=== PATIENT | male | born 1980 | race Caucasian/White ===

== ENCOUNTER 2020-07-26 17:18 | Outpatient (REF) | payer OTHER, SELFPAY | END 2020-07-26 17:19 | disposition home or self-care (01) | LOC: HO.LAB 17:18 | PROVIDERS: Visit Provider Internal Medicine | DX: Z20.828 Contact with and (suspected) exposure to other viral communicable diseases (principal) | CPT/HCPCS: 36415; C9803; U0003 ==

== ENCOUNTER 2020-08-23 06:05 | Outpatient (REF) | payer OTHER, SELFPAY | END 2020-08-23 06:06 | disposition home or self-care (01) | LOC: HO.LAB 06:05 | PROVIDERS: Visit Provider Internal Medicine | DX: Z20.822 Contact with and (suspected) exposure to COVID-19 (principal) | CPT/HCPCS: 36415; C9803; U0003; U0005 ==

== ENCOUNTER 2020-11-05 08:29 | Outpatient (REF) | payer OTHER, SELFPAY ==
[2020-11-05 09:12] LABS: MANUAL DIFF FLAG NO
[2020-11-05 09:18] LABS: Basophils Percent Auto 0.4 % (0-2); Eosinophils Absolute Auto 0.1 X10*3/uL (0.0-0.4); Eosinophils Percent Auto 1.4 % (0-4); Hematocrit 46.8 % (42-52); Hemoglobin 15.2 g/dl (14.0-18.0); Imm Gran Abs Auto 0.02 X10*3/uL (0.00-0.03); Imm Gran Pct Auto 0.3 % (0.0-0.4); Lymphocytes Absolute Auto 2.5 X10*3/uL (1.2-4.9); Lymphocytes Percent Auto 34.4 % (20-40); Mean Corpuscular HGB Conc 32.5 g/dl (31.0-36.0); Mean Corpuscular Hemoglobin 30.9 pg (27.0-33.0); Mean Corpuscular Volume 95.1 fL (80-98); Mean Platelet Volume 11.4 fL (9.4-12.4); Monocytes Absolute Auto 0.8 X10*3/uL (0.1-1.2); Monocytes Percent Auto 11.8 % (2-11); Neutrophils Absolute Auto 3.7 X10*3/uL (2.0-8.3); Neutrophils Percent Auto 51.7 % (45-73); Platelet Count 244 X10*3/uL (160-400); Red Blood Count 4.92 X10*6/uL (4.60-5.80); Red Cell Distribution Width 13.1 % (11.0-16.0); White Blood Count 7.1 X10*3/uL (4.8-10.8)
[2020-11-05 09:35] LABS: Anion Gap 15 (12-20); Blood Urea Nitrogen 20 mg/dL (9-16); Calcium 9.8 mg/dL (8.4-10.2); Carbon Dioxide 26 mmol/L (22-29); Chloride 101 mmol/L (96-108); Estimated Glomerular Filt Rate > 60; Glucose Fasting 97 mg/dL (60-99); Potassium 5.1 mmol/L (3.3-5.1); Sodium 137 mmol/L (135-145)
[2020-11-05 09:58] LABS: Rheumatoid Factor < 15.0 IU/mL (<15.0)
== END 2020-11-05 08:30 | disposition home or self-care (01) ==
LOC: HO.LAB 08:29
PROVIDERS: PCP Internal Medicine; Visit Provider Nurse Practitioner Family
DX: M25.561 Pain in right knee (principal); M25.562 Pain in left knee; G89.29 Other chronic pain
CPT/HCPCS: 36415; 80048; 85025; 86431

== ENCOUNTER 2021-07-14 06:03 | Outpatient (REF) | payer OTHER, SELFPAY ==
[2021-07-14 06:15] LABS: MANUAL DIFF FLAG NO
[2021-07-14 07:18] LABS: Basophils Percent Auto 0.4 % (0-2); Eosinophils Absolute Auto 0.1 X10*3/uL (0.0-0.4); Eosinophils Percent Auto 1.8 % (0-4); Hematocrit 45.9 % (42.0-52.0); Hemoglobin 15.3 g/dl (14.0-18.0); Imm Gran Abs Auto 0.03 X10*3/uL (0.00-0.03); Imm Gran Pct Auto 0.4 % (0.0-0.4); Lymphocytes Absolute Auto 2.9 X10*3/uL (1.2-4.9); Lymphocytes Percent Auto 35.8 % (20-40); Mean Corpuscular HGB Conc 33.3 g/dl (31.0-36.0); Mean Corpuscular Hemoglobin 31.2 pg (27.0-33.0); Mean Corpuscular Volume 93.7 fL (80.0-98.0); Mean Platelet Volume 11.6 fL (9.4-12.4); Monocytes Absolute Auto 0.9 X10*3/uL (0.1-1.2); Monocytes Percent Auto 10.8 % (2-11); Neutrophils Absolute Auto 4.1 x10*3/uL (2.0-8.3); Neutrophils Percent Auto 50.8 % (45-73); Platelet Count 254 X10*3/uL (160-400); Red Cell Distribution Width 12.8 % (11.0-16.0)
[2021-07-14 07:51] LABS: Alanine Aminotransferase 47 U/L (0-40); Albumin Level 4.9 g/dL (3.5-5.0); Alkaline Phosphatase 38 U/L (39-117); Anion Gap 15 (12-20); Aspartate Amino Transferase 44 U/L (5-37); Bilirubin Total 0.6 mg/dL (0.0-1.0); Blood Urea Nitrogen 16 mg/dL (9-16); Calcium 9.7 mg/dL (8.4-10.2); Carbon Dioxide 26 mmol/L (22-29); Chloride 100 mmol/L (96-108); Cholesterol 246 mg/dL; Estimated Glomerular Filt Rate > 60; Glucose Fasting 88 mg/dL (60-99); HDL Cholesterol 52 mg/dL; LDL Cholesterol Calculated 157 mg/dl; Potassium 4.3 mmol/L (3.3-5.1); Sodium 137 mmol/L (135-145); Total Protein 7.6 g/dL (6.5-8.0); Triglycerides 187 mg/dL
[2021-07-14 08:14] LABS: TSH reflex Free T4 1.13 uIU/mL (0.32-4.0)
== END 2021-07-14 06:04 | disposition home or self-care (01) ==
LOC: HO.LAB 06:03
PROVIDERS: PCP Internal Medicine; Visit Provider Internal Medicine
DX: M25.512 Pain in left shoulder (principal); E78.00 Pure hypercholesterolemia, unspecified; E55.9 Vitamin D deficiency, unspecified
CPT/HCPCS: 36415; 80053; 80061; 82306; 84443; 85025

== ENCOUNTER 2021-07-15 08:30 | Outpatient (REF) | payer OTHER, SELFPAY ==
--- NOTE | ~2021-07-15 | XR_ITS ---
EXAMINATION: XR SHOULDER, LEFT CLINICAL INFORMATION: Pain in the left shoulder COMPARISON: None TECHNIQUE: Four views of the left shoulder. FINDINGS: No fracture or dislocation. The glenohumeral joint is well aligned. There is mild narrowing of the joint space. The acromioclavicular joint is intact. Minimal calcification in the soft tissues adjacent to the greater tuberosity. XR/XR shoulder LT min 2V IMPRESSION: There may be minimal calcific tendinosis of the rotator cuff. Mild glenohumeral joint space narrowing.
== END 2021-07-15 08:31 | disposition home or self-care (01) ==
LOC: HO.XRAY 08:30
PROVIDERS: PCP Internal Medicine; Visit Provider Internal Medicine
DX: M25.512 Pain in left shoulder (principal)
CPT/HCPCS: 73030

== ENCOUNTER 2021-08-09 14:00 | Outpatient (RCR) | payer OTHER, SELFPAY ==
--- NOTE | 2021-08-09 15:04 | MHC.PT.EP ---
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 FUNCTIONALLY, Pt HAS BEEN FAVORING Lt UE W ADLs/ WORK TASKS, DIFFIC SLEEPING, AND LIMITED REACHING/ LIFTING/CARRYING. HE IS A GOOD PT CANDIDATE TO ADDRESS THE ABOVE FINDINGS AND DEV HEP/ SELF-SX MGMT TECHN. Frequency and Duration: The patient will be seen 2 x WK x 4 WKS Short Term Goals: Pt'S LEFT SH PAIN DECR TO 2-3/10 W REG ADLs/ WORK TASKS IN 2 WKS Pt DEMON FULL AROM Lt SH IN 2 WKS (-) LEFT NEER'S SIGN IN 2 WKS [facility] Goals: Pt INDEP HEP PROGR AND SELF-SX MGMT STRATEGIES FOR LEFT SH INJURY IN 4 WKS Pt RESUME REG ADLs TO DAVID EVIDENT IN IMPROVED SPADI BY 5-8 POINTS ( AT EVAL 26/130 ) IN 4 WKS Pt SIMUL 3:3 ADLs / WORK TASKS W WFL MECHANICS (DECR SH STRESS) IN 4 WKS Treatment Plan: Modalities to reduce pain, spasms and effusion. Manual therapy to restore motion and function. Therapeutic exercise to improve strength and flexibility. Neuromuscular re-education for posture and balance. Therapeutic activities to return to functional activities of daily living. Electronically signed by: Aruna Andrade,PT Please sign and return to therapist. Thank you for your referral.
--- NOTE | 2021-08-17 13:11 | MHC.PT.DC ---
[facility] [place] Office [place] Office [place] Office [address] Ailyn Lundy 140 [facility] [phone] F: [phone] F: [phone] F: [phone] F: [phone] Physical Therapy Discharge Report Diagnosis: PAIN IN LEFT SHOULDER Date of Surgery: Date of Evaluation: 08/09/21 Date of Discharge: 08/17/21 Treatments to Date: 1 Cancellations to Date: 1 No Shows to Date: Discharge Status: Achieved Goals Improved Function Independent with HEP Patient Elected to Stop Discharge Summary: Pt PHONED PT DEPT AND NOTED HE HAS BEEN PERFORMING THERAPEUTIC EXERCISES FROM INITIAL PT EVAL AND HE IS FEELING AND DOING MUCH BETTER AND IS DISCHARGING HIMSELF FROM PT AT THIS TIME. Electronically signed by: Aruna Andrade, PT Please sign and return to therapist. Thank you for your referral.
== END 2021-08-17 13:16 | disposition home or self-care (01) ==
LOC: HO.PT 14:00
PROVIDERS: PCP Internal Medicine; Visit Provider Internal Medicine
DX: M25.512 Pain in left shoulder (principal)
CPT/HCPCS: 97110; 97161

== ENCOUNTER 2022-03-16 06:06 | Outpatient (REF) | payer OTHER, SELFPAY ==
[2022-03-16 06:12] LABS: MANUAL DIFF FLAG NO
[2022-03-16 07:39] LABS: Basophils Percent Auto 0.3 % (0-2); Eosinophils Absolute Auto 0.1 X10*3/uL (0.0-0.4); Hematocrit 43.7 % (42.0-52.0); Hemoglobin 14.7 g/dl (14.0-18.0); Imm Gran Abs Auto 0.02 X10*3/uL (0.00-0.03); Imm Gran Pct Auto 0.3 % (0.0-0.4); Lymphocytes Absolute Auto 2.4 X10*3/uL (1.2-4.9); Lymphocytes Percent Auto 36.4 % (20-40); Mean Corpuscular HGB Conc 33.6 g/dl (31.0-36.0); Mean Corpuscular Hemoglobin 31.2 pg (27.0-33.0); Mean Corpuscular Volume 92.8 fL (80.0-98.0); Mean Platelet Volume 11.5 fL (9.4-12.4); Monocytes Absolute Auto 0.6 X10*3/uL (0.1-1.2); Monocytes Percent Auto 9.6 % (2-11); Neutrophils Absolute Auto 3.4 x10*3/uL (2.0-8.3); Neutrophils Percent Auto 51.4 % (45-73); Platelet Count 248 X10*3/uL (160-400); Red Blood Count 4.71 X10*6/uL (4.60-5.80); Red Cell Distribution Width 12.4 % (11.0-16.0); White Blood Count 6.5 X10*3/uL (4.8-10.8)
[2022-03-16 08:03] LABS: Alanine Aminotransferase 31 U/L (0-40); Albumin Level 4.6 g/dL (3.5-5.0); Alkaline Phosphatase 35 U/L (39-117); Anion Gap 16 (12-20); Aspartate Amino Transferase 29 U/L (5-37); Bilirubin Total 0.5 mg/dL (0.0-1.0); Blood Urea Nitrogen 14 mg/dL (9-16); Calcium 9.1 mg/dL (8.4-10.2); Carbon Dioxide 25 mmol/L (22-29); Chloride 103 mmol/L (96-108); Cholesterol 225 mg/dL; Estimated Glomerular Filt Rate > 60; Glucose Fasting 96 mg/dL (60-99); HDL Cholesterol 45 mg/dL; LDL Cholesterol Calculated 134 mg/dl; Potassium 4.7 mmol/L (3.3-5.1); Sodium 139 mmol/L (135-145); Total Protein 7.3 g/dL (6.5-8.0); Triglycerides 233 mg/dL
[2022-03-16 08:06] LABS: TSH reflex Free T4 1.55 uIU/mL (0.32-4.0); Vitamin D 25-OH Total 28.5 ng/mL (>30)
== END 2022-03-16 06:07 | disposition home or self-care (01) ==
LOC: HO.LAB 06:06
PROVIDERS: PCP Internal Medicine; Visit Provider Internal Medicine
DX: E78.00 Pure hypercholesterolemia, unspecified (principal); E55.9 Vitamin D deficiency, unspecified; I10 Essential (primary) hypertension
CPT/HCPCS: 36415; 80053; 80061; 82306; 84443; 85025

== ENCOUNTER 2023-02-15 13:29 | Outpatient (AMB) | payer OTHER, SELFPAY ==
[2023-02-15 13:30] VITALS: BP 122/70; PULSE 92; O2SAT 96; BMI 25.0
--- NOTE | 2023-02-15 13:30 | MHC.PC.OV ---
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 Allergies No Known Allergies Allergy (Mild, Verified 02/15/23 13:38) NONE Medication List - Last Reconciled 02/15/23 by YOANA Iglesias atorvastatin 10 mg PO DAILY 90 days cholecalciferol (vitamin D3) 50 mcg PO DAILY 90 days cyclobenzaprine 5 mg PO TID PRN 30 days Tobacco use date assessed: 02/15/23 Dental Screening Dental Screen Date: 02/15/23 Did you have a dental visit in the last 12 months?: Yes Did you have a dental problem in the last 6 months where you did not have access to dental care?: No Was dental information given to patient?: Patient has dentist HPI Muscle spasms On Legs HPI Details Patient is a 42-year-old male who presents today for the same day visit due to intermittent bilateral knee pain and spasming in his anterior thigh/calfs since 10/2022. Patient of Dr. Carrizales. Medical history significant for bilateral knee pain, hypercholesterolemia, insomnia among others. Patient has orders for bilateral knee x-rays, he was encouraged to complete his x-rays. He reports taking Excedrin with no much improvement in pain. He also reports taking cyclobenzaprine with improvement in spasms. Patient reports that bilateral knee pain is worse in the morning when he wakes up. Reports that knee cracking at times. Reports riding bicycle to work. Reports feels better when wears compression stockings. Denies injury. No numbness or tingling. [facility] Medical History Allergic rhinitis Knee pain, bilateral Pure hypercholesterolemia Vitamin D deficiency Surgical History History of strabismus surgery Social History Housing: Apartment Alcohol intake: current Alcohol intake frequency: a few times a week Patient Tobacco Use Status: Current everyday Tobacco user Tobacco use type: Cigar Cigarettes Per Day: 1 e-Cigarette/Vaping Use: Never Used Second Hand Smoke Exposure: Yes service: No Current occupational status: employed Cognitive needs: No Hearing needs: No Vision needs: No Questionnaire PHQ-9 Over the last 2 weeks, how often have you been bothered by any of the following problems? 1. Little interest or pleasure in doing things: not at all 2. Feeling down, depressed, or hopeless: not at all 3. Trouble falling or staying asleep, or sleeping too much: not at all 4. Feeling tired or having little energy: not at all 5. Poor appetite or overeating: not at all 6. Feeling bad about yourself - or that you are a failure or have let yourself or your family down: not at all 7. Trouble concentrating on things, such as reading the newspaper or watching television: not at all 8. Moving or speaking so slowly that other people could have noticed. Or the opposite - being so fidgety or restless that you have been moving around a lot more than usual: not at all 9. Thoughts that you would be better off or of hurting yourself in some way: not at all Total score: 0 Depression Screening Interpretation: Negative 18702 - PHQ-9 Billing: Yes Source: Developed by Drs. Bill Pardo, Rachel Prasad, Edvin Baugh and colleagues, with an educational portia from [employer]. Thrive Questionnaire Date Thrive assessed: 11/10/22 AUDIT C Alcohol Use Questionnaire (AUDIT-C) 1. How often do you have a drink containing alcohol?: 2-4 times a month 2. How many drinks containing alcohol do you have on a typical day when you are drinking?: 5 or 6 3. How often do you have six or more drinks on one occasion?: Never Total Score: 4 Score Reviewed/Action Taken: Yes ALIA-7 AMB Questionnaire ALIA-7 Date ALIA - 7 assessed: 11/10/22 Source: Developed by Drs. Bill Pardo, Edvin Aparicio and colleagues, with an educational portia from [employer]. Review of Systems Const Denies body aches, Denies chills, Denies fever(s) and Denies headache(s) Eyes Denies change in vision ENT Denies dizziness, Denies otalgia, Denies headache(s), Denies nasal discharge, Denies sinus pain and Denies sore throat Card Denies chest pain, Denies edema, Denies lightheadedness and Denies dyspnea Resp Denies cough, Denies dyspnea and Denies wheezing GI Denies abdominal pain Denies dysuria Musc Denies myalgias, Reports arthralgias, Denies joint swelling, Denies numbness and Denies tingling Skin/Breast Denies rash Neuro Denies dizziness, Denies headache(s), Denies numbness and Denies tingling Aller/Immun Denies wheezing Physical exam (Primary Care) Vital Signs: Last Vital Signs Pulse 92 02/15/23 13:30 BP 122/70 02/15/23 13:30 Pulse Ox 96 02/15/23 13:30 Oxygen Delivery Method Room Air 02/15/23 13:30 BMI result Body Mass Index 25.0 Tobacco/Smoking Status: Tobacco use Status Tobacco use date assessed 02/15/23 02/15/23 13:31 Patient Tobacco Use Status Current everyday Tobacco 02/15/23 13:31 Tobacco use type Cigar 02/15/23 13:31 e-Cigarette/Vaping Use Never Used 02/15/23 13:31 PHQ-9: PHQ-9 Score PHQ-9: Total score 0 02/15/23 13:31 Depression Screening Interpretation: Negative Thrive Assessment: Date of Thrive Assessment Date Thrive assessed 11/10/22 02/15/23 13:31 Const General: cooperative and no acute distress Orientation/consciousness: patient oriented x3 [facility] Head: Yes normocephalic and Yes atraumatic Mouth: oropharynx normal and moist mucous membranes Throat: Yes posterior oropharynx normal Eyes General: appearance normal, both eyes and all related structures Neck Neck: Yes normal visual inspection and Yes full ROM Resp Effort & Inspection: normal respiratory effort and able to speak in complete sentences Auscultation: clear to auscultation bilaterally, no crackles, no rales, no rhonchi and no wheezes Cardio Rate: regular rate Rhythm: regular rhythm Heart sounds: S1 normal heart sound present and S2 normal heart sound present GI Auscultation: normal bowel sounds Skin General skin exam: no rashes or lesions noted Neuro General: patient oriented x3 Gait exam (Neuro): Normal gait present Extrem Other: Bilateral knee normal to inspection, nontender, full range of motion General: Yes full ROM and No edema Assessment and Plan Assessment & Plan (1) Knee pain, bilateral: Code(s): M25.561 - Pain in right knee; M25.562 - Pain in left knee Qualifiers: Chronicity: chronic Qualified Code(s): M25.561 - Pain in right knee; M25.562 - Pain in left knee; G89.29 - Other chronic pain Plan: Patient was encouraged to complete bilateral knee x-rays that were ordered by his PCP. Will refer to physical therapy. Most likely arthritis. Will provide patient with ibuprofen 600 mg every 8 hours p.r.n., he will also try Tylenol 650 mg every 6 hours p.r.n.. Patient agreed with the plan. Keep appointment with PCP as scheduled or follow-up sooner as needed. Orders: Orders PT Evaluation and Treatment Today M25.561 - Pain in right knee, M25.562 - Pain in left knee Medications: New ibuprofen 600 mg PO Q8H PRN 20 tabs 0RF pain M25.561 - Pain in right knee, M25.562 - Pain in left knee Coding Level of Care Code Est Pt Level 3 (46640) Diagnoses Knee pain, bilateral M25.561; M25.562; G89.29 Chronicity: chronic
== END 2023-02-15 14:46 | disposition home or self-care (01) ==
PROVIDERS: PCP Internal Medicine; Visit Provider Nurse Practitioner Family
DX: M25.561 Pain in right knee (principal); M25.562 Pain in left knee; G89.29 Other chronic pain
CPT/HCPCS: 99213

== ENCOUNTER 2023-02-23 06:01 | Outpatient (REF) | payer OTHER, SELFPAY ==
--- NOTE | ~2023-02-23 | XR_ITS ---
EXAMINATION: XR KNEE, RIGHT CLINICAL INFORMATION: Pain. COMPARISON: Radiographs dated 05/27/2019. TECHNIQUE: AP, lateral and sunrise views of the right knee. FINDINGS: Bones and soft tissues are normal. No fracture or joint effusion. Alignment is anatomic. Joint spaces are well maintained. No abnormal soft tissue calcification. XR/XR knee RT 3V IMPRESSION: Normal knee. EXAMINATION: XR KNEE, LEFT CLINICAL INFORMATION: Pain. COMPARISON: Radiographs dated 05/27/2019. TECHNIQUE: AP, lateral and sunrise views of the left knee. FINDINGS: Bones and soft tissues are normal. No fracture or joint effusion. Alignment is anatomic. Joint spaces are well maintained. No abnormal soft tissue calcification. IMPRESSION: Normal knee.
--- NOTE | ~2023-02-23 | XR_ITS ---
EXAMINATION: XR KNEE, RIGHT CLINICAL INFORMATION: Pain. COMPARISON: Radiographs dated 05/27/2019. TECHNIQUE: AP, lateral and sunrise views of the right knee. FINDINGS: Bones and soft tissues are normal. No fracture or joint effusion. Alignment is anatomic. Joint spaces are well maintained. No abnormal soft tissue calcification. XR/XR knee LT 3V IMPRESSION: Normal knee. EXAMINATION: XR KNEE, LEFT CLINICAL INFORMATION: Pain. COMPARISON: Radiographs dated 05/27/2019. TECHNIQUE: AP, lateral and sunrise views of the left knee. FINDINGS: Bones and soft tissues are normal. No fracture or joint effusion. Alignment is anatomic. Joint spaces are well maintained. No abnormal soft tissue calcification. IMPRESSION: Normal knee.
[2023-02-23 06:14] LABS: MANUAL DIFF FLAG NO
[2023-02-23 07:40] LABS: Basophils Percent Auto 0.4 % (0-2); Eosinophils Absolute Auto 0.1 X10*3/uL (0.0-0.4); Eosinophils Percent Auto 1.6 % (0-4); Hematocrit 44.1 % (42.0-52.0); Hemoglobin 14.4 g/dl (14.0-18.0); Imm Gran Abs Auto 0.03 X10*3/uL (0.00-0.03); Imm Gran Pct Auto 0.4 % (0.0-0.4); Lymphocytes Absolute Auto 2.2 X10*3/uL (1.2-4.9); Lymphocytes Percent Auto 30.3 % (20-40); Mean Corpuscular HGB Conc 32.7 g/dl (31.0-36.0); Mean Corpuscular Hemoglobin 30.8 pg (27.0-33.0); Mean Corpuscular Volume 94.4 fL (80.0-98.0); Mean Platelet Volume 11.7 fL (9.4-12.4); Monocytes Absolute Auto 0.6 X10*3/uL (0.1-1.2); Monocytes Percent Auto 7.8 % (2-11); Neutrophils Absolute Auto 4.4 x10*3/uL (2.0-8.3); Neutrophils Percent Auto 59.5 % (45-73); Platelet Count 238 X10*3/uL (160-400); Red Blood Count 4.67 X10*6/uL (4.60-5.80); White Blood Count 7.3 X10*3/uL (4.8-10.8)
[2023-02-23 08:13] LABS: Alanine Aminotransferase 29 U/L (0-40); Albumin Level 4.6 g/dL (3.5-5.0); Alkaline Phosphatase 35 U/L (39-117); Anion Gap 14 (12-20); Aspartate Amino Transferase 28 U/L (5-37); Bilirubin Total 0.3 mg/dL (0.0-1.0); Blood Urea Nitrogen 25 mg/dL (9-16); Calcium 9.4 mg/dL (8.4-10.2); Carbon Dioxide 23 mmol/L (22-29); Chloride 104 mmol/L (96-108); Cholesterol 241 mg/dL; Estimated Glomerular Filt Rate > 60; Glucose Fasting 95 mg/dL (60-99); HDL Cholesterol 43 mg/dL; LDL Cholesterol Calculated 121 mg/dl; Potassium 4.2 mmol/L (3.3-5.1); Sodium 137 mmol/L (135-145); Total Protein 7.7 g/dL (6.5-8.0); Triglycerides 387 mg/dL
[2023-02-23 08:24] LABS: TSH reflex Free T4 1.24 uIU/mL (0.32-4.0); Vitamin D 25-OH Total 33.1 ng/mL (>30)
[2023-02-23 08:47] LABS: Appearance Urine Clear; Color Urine Yellow; Glucose Urine UA Negative (Negative); Leukocyte Esterase Urine Negative (Negative); Nitrite Urine Negative (Negative); PH 5.5 (5.0-9.0); Urine Blood Negative (Negative); Urine Ketones Negative (Negative); Urine Protein Negative (Neg-Trace)
== END 2023-02-23 06:02 | disposition home or self-care (01) ==
LOC: HO.XRAY 06:01
PROVIDERS: PCP Internal Medicine; Visit Provider Internal Medicine
DX: M25.562 Pain in left knee (principal); M25.561 Pain in right knee; R30.0 Dysuria; E78.00 Pure hypercholesterolemia, unspecified; E55.9 Vitamin D deficiency, unspecified; Z00.00 Encounter for general adult medical examination without abnormal findings
CPT/HCPCS: 36415; 73562; 80053; 80061; 81003; 82306; 84443; 85025

== ENCOUNTER 2023-03-13 14:24 | Outpatient (AMB) | payer OTHER, SELFPAY ==
[2023-03-13 14:30] VITALS: BP 118/72; PULSE 93; O2SAT 97; BMI 25.1
--- NOTE | 2023-03-13 14:30 | MHC.PC.OV ---
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 Accompanied by: Self / Same As Patient Allergies No Known Allergies Allergy (Mild, Verified 03/20/23 03:29) NONE Medication List - Last Reconciled 03/13/23 by Jason Carrizales MD atorvastatin 10 mg PO DAILY 90 days cholecalciferol (vitamin D3) 50 mcg PO DAILY 90 days cyclobenzaprine 5 mg PO TID PRN 30 days ibuprofen 600 mg PO Q8H PRN Tobacco use date assessed: 03/13/23 Dental Screening Dental Screen Date: 03/13/23 Did you have a dental visit in the last 12 months?: Yes Did you have a dental problem in the last 6 months where you did not have access to dental care?: No Was dental information given to patient?: Patient has dentist HPI hyperlipidemia HPI Details Patient comes in today for his follow up visit States that he feels okay but continues to experience recurrent bilateral knee pains Had knee x-rays done a couple of weeks ago and would like to know how his x-rays came out He denies any headaches or dizziness Denies any chest pains, no SOB No nausea/vomiting, no abdominal pain No change in bowel habits noted Had his follow up labs done a couple of weeks ago - to discuss his results [facility] Medical History Allergic rhinitis Knee pain, bilateral Pure hypercholesterolemia Vitamin D deficiency Surgical History History of strabismus surgery Social History Housing: Apartment Alcohol intake: current Alcohol intake frequency: a few times a week Patient Tobacco Use Status: Current everyday Tobacco user Tobacco use type: Cigar Cigarettes Per Day: 1 e-Cigarette/Vaping Use: Never Used Second Hand Smoke Exposure: Yes service: No Current occupational status: employed 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 1. Little interest or pleasure in doing things: not at all 2. Feeling down, depressed, or hopeless: not at all 3. Trouble falling or staying asleep, or sleeping too much: not at all 4. Feeling tired or having little energy: not at all 5. Poor appetite or overeating: not at all 6. Feeling bad about yourself - or that you are a failure or have let yourself or your family down: not at all 7. Trouble concentrating on things, such as reading the newspaper or watching television: not at all 8. Moving or speaking so slowly that other people could have noticed. Or the opposite - being so fidgety or restless that you have been moving around a lot more than usual: not at all 9. Thoughts that you would be better off or of hurting yourself in some way: not at all Total score: 0 Depression Screening Interpretation: Negative 41981 - PHQ-9 Billing: Yes Source: Developed by Drs. Bill Pardo, Rachel Prasad, Edvin Baugh and colleagues, with an educational portia from [employer] for [employer]. Thrive Questionnaire Date Thrive assessed: 03/13/23 I am a: Patient What is your living situation today?: I have a steady place to live Within the past 12 months, did the food you bought not last and you didn't have the money to get more?: Never true Within the past 12 months, did you worry whether your food would run out before you got money to buy more?: Never true Do you have trouble paying for medicines?: No Do you have trouble getting transportation to medical appointments?: No Do you have trouble paying your heating and electricity bill?: No Do you have trouble taking care of your child, family member or friend?: No Do you have trouble with day-to-day activities such as bathing, preparing meals, shopping, managing finances, etc.?: No Are you currently unemployed and looking for a job?: No Are you interested in more education?: No Please select the resources that you would like help with: None Currently or been in a relationship where the following occur: no concerns reported AUDIT C Alcohol Use Questionnaire (AUDIT-C) 1. How often do you have a drink containing alcohol?: 2-4 times a month 2. How many drinks containing alcohol do you have on a typical day when you are drinking?: 5 or 6 3. How often do you have six or more drinks on one occasion?: Never Total Score: 4 Score Reviewed/Action Taken: Yes ALIA-7 AMB Questionnaire ALIA-7 Date ALIA - 7 assessed: 03/13/23 Feeling nervous, anxious, or on edge: 0 = Not at all Not being able to stop or control worryin = Not at all Worrying too much about different things: 0 = Not at all Trouble relaxin = Not at all Being so restless that it is hard to sit still: 0 = Not at all Becoming easily annoyed or irritable: 0 = Not at all Feeling afraid as if something awful might happen: 0 = Not at all Total ALIA-7 score (0-4 normal; 5-9 mild; 10-14 moderate; 15-21 severe): 0 Source: Developed by Drs. Bill Pardo, Rachel Prasad, Edvin Baugh and colleagues, with an educational portia from [employer] for [employer]. Review of Systems Const Denies chills, Denies fatigue, Denies fever(s) and Denies headache(s) ENT Denies dysphagia, Denies dizziness, Denies otalgia, Denies headache(s), Denies odynophagia and Denies sore throat Card Denies chest pain, Denies palpitations and Denies dyspnea Resp Denies cough and Denies dyspnea GI Denies abdominal pain, Denies constipation, Denies dysphagia, Denies heartburn, Denies diarrhea, Denies nausea, Denies odynophagia and Denies vomiting Denies dysuria, Denies nocturia and Denies urinary frequency Musc Reports arthralgias (over both knees) Neuro Denies dizziness and Denies headache(s) Endo Denies fatigue and Denies palpitations Physical exam (Primary Care) Vital Signs: Last Vital Signs Pulse 93 03/13/23 14:30 BP 118/72 03/13/23 14:30 Pulse Ox 97 03/13/23 14:30 Oxygen Delivery Method Room Air 03/13/23 14:30 BMI result Body Mass Index 25.1 Tobacco/Smoking Status: Tobacco use Status Tobacco use date assessed 03/13/23 03/13/23 14:38 Patient Tobacco Use Status Current everyday Tobacco 03/13/23 14:38 Tobacco use type Cigar 03/13/23 14:38 e-Cigarette/Vaping Use Never Used 03/13/23 14:38 PHQ-9: PHQ-9 Score PHQ-9: Total score 0 03/13/23 14:56 Depression Screening Interpretation: Negative Thrive Assessment: Date of Thrive Assessment Date Thrive assessed 03/13/23 03/13/23 14:38 Currently or been in a relationship where the following occur: no concerns reported Const General: no acute distress and alert HENMT Ears: TM's normal bilaterally and EAC's normal Throat: Yes posterior oropharynx normal and Yes tonsils normal (no TP congestion) Neck Neck: Yes no lymphadenopathy and Yes supple Resp Auscultation: clear to auscultation bilaterally, no rales and no wheezes Cardio Rate: regular rate Rhythm: regular rhythm Heart sounds: no murmurs GI Palpation (GI): Soft to palpation and nontender Auscultation: normal bowel sounds Skin General skin exam: no rashes or lesions noted Extrem General: Yes no clubbing, cyanosis or edema Right lower extremity: knee Details: tenderness; no swelling Left lower extremity: knee Details: tenderness; no swelling Results Reviewed Results Reviewed: Laboratory Tests 03/16/22 02/23/23 02/23/23 06:11 06:12 06:12 WBC 7.3 Hgb 14.4 Hct 44.1 Plt Count 238 Sodium 137 Potassium 4.2 Creatinine 0.90 Estimated GFR > 60 Fasting Glucose 95 Calcium 9.4 AST 28 ALT 29 Triglycerides 233 387 Cholesterol 225 241 LDL Cholesterol, Calc 134 121 HDL Cholesterol 45 43 25-OH Vitamin D Total 33.1 TSH 1.24 Ur Specific [place] Urine Protein Urine Glucose (UA) Urine Blood 02/23/23 07:21 WBC Hgb Hct Plt Count Sodium Potassium Creatinine Estimated GFR Fasting Glucose Calcium AST ALT Triglycerides Cholesterol LDL Cholesterol, Calc HDL Cholesterol 25-OH Vitamin D Total TSH Ur Specific [place] 1.010 Urine Protein Negative Urine Glucose (UA) Negative Urine Blood Negative Assessment and Plan Assessment & Plan (1) Pure hypercholesterolemia: Code(s): E78.00 - Pure hypercholesterolemia, unspecified Plan: Results of his labs done a couple of weeks ago reviewed and discussed with patient - advised that his LDL cholesterol has improved from previous but his serum triglyceride level has increased significantly Reinforced low cholesterol diet Continue Atorvastatin 10 mg QD Will recheck his labs and fasting lipids again in 4 months for follow up (2) Elevated LFTs: Code(s): R79.89 - Other specified abnormal findings of blood chemistry Plan: His LFTs have improved previously and have remained normal on his recent labs; were most likely due to his alcohol intake and partly to his high cholesterol Reinforced to continue trying to cut back on his alcohol intake and to avoid taking any Tylenol or Acetaminophen-containing medications as much as possible Will continue to monitor his LFTs regularly (3) Vitamin D deficiency: Code(s): E55.9 - Vitamin D deficiency, unspecified Plan: Corrected - continue Vitamin D3 2000 units QD (4) Left shoulder pain: Code(s): M25.512 - Pain in left shoulder Qualifiers: Chronicity: unspecified Qualified Code(s): M25.512 - Pain in left shoulder Plan: His shoulder pains have improved a lot and only bother him occasionally nowadays X-rays of the left shoulder done last year revealed findings suggestive of minimal calcific tendinosis of the rotator cuff and mild glenohumeral joint space narrowing He has been advised that this is mostly an overuse type of injury, most likely brought about by his workout routine (5) Knee pain, bilateral: Code(s): M25.561 - Pain in right knee; M25.562 - Pain in left knee Qualifiers: Chronicity: chronic Qualified Code(s): M25.561 - Pain in right knee; M25.562 - Pain in left knee; G89.29 - Other chronic pain Plan: X-rays of both knees done a couple of weeks ago came out normal Will refer him to Orthopedics for further evaluation and management (6) Insomnia: Code(s): G47.00 - Insomnia, unspecified Qualifiers: Insomnia type: unspecified Qualified Code(s): G47.00 - Insomnia, unspecified Plan: His main issue here is waking up consistently after 4 to 5 hours of sleep for no particular reason - may be due to some unrecognized anxiety or other potential issues Has been advised to try adjusting his sleeping habits OR try taking some OTC Melatonin to see if it will help, although he technically has no problem falling asleep when he gets to bed at night (7) Cigar smoker: Code(s): F17.290 - Nicotine dependence, other tobacco product, uncomplicated Plan: Counseled again on smoking cessation Plan Follow up in 4 months Orders: Orders Comprehensive [place]. Panel Fast 4 Months E78.00 - Pure hypercholesterolemia, unspecified Lipid Panel 4 Months E78.00 - Pure hypercholesterolemia, unspecified Referrals Orthopedics Referral M25.561 - Pain in right knee, M25.562 - Pain in left knee Coding Level of Care Code Est Pt Level 4 (59762) Diagnoses Pure hypercholesterolemia E78.00 Elevated LFTs R79.89 Vitamin D deficiency E55.9 Left shoulder pain M25.512 Chronicity: unspecified Knee pain, bilateral M25.561; M25.562; G89.29 Chronicity: chronic Insomnia G47.00 Insomnia type: unspecified Cigar smoker F17.290
== END 2023-03-13 15:05 | disposition home or self-care (01) ==
PROVIDERS: PCP Internal Medicine; Visit Provider Internal Medicine
DX: E78.00 Pure hypercholesterolemia, unspecified (principal); E55.9 Vitamin D deficiency, unspecified; M25.512 Pain in left shoulder; F17.290 Nicotine dependence, other tobacco product, uncomplicated; M25.561 Pain in right knee; M25.562 Pain in left knee; G47.00 Insomnia, unspecified
CPT/HCPCS: 99214

== ENCOUNTER 2023-03-16 10:30 | Outpatient (AMB) | payer OTHER, SELFPAY ==
[2023-03-16 10:40] VITALS: BMI 25.0
--- NOTE | 2023-03-16 10:40 | A.OFFVIS_ITS ---
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 States both are painful. Seen with his PCP Dr. Carrizales on 03/13/23 who referred patient to P.T and orthopedics due to ongoing knee pain since October. Patient rides a bike to and from work, which increase pain. He now has an electric bike which has been helping. The patient states that he has begun formal physical therapy. He has only been there for his evaluation visit. He states that he has started stretching on his own which has given him fairly good relief. He denies any locking or giving way. He does not like taking medicines for his discomfort. Allergies No Known Allergies Allergy (Mild, Verified 03/16/23 10:41) NONE Medication List - Last Reconciled 03/16/23 by Mono Salamanca MD atorvastatin 10 mg PO DAILY 90 days cholecalciferol (vitamin D3) 50 mcg PO DAILY 90 days cyclobenzaprine 5 mg PO TID PRN 30 days ibuprofen 600 mg PO Q8H PRN PFSH Medical History Allergic rhinitis Knee pain, bilateral Pure hypercholesterolemia Vitamin D deficiency Surgical History History of strabismus surgery Social History (Updated 03/16/23 @ 10:54 by Gaye Busby [facility]) Housing: Apartment Alcohol intake: current Alcohol intake frequency: a few times a week Patient Tobacco Use Status: Current everyday Tobacco user Tobacco use type: Cigar Cigarettes Per Day: 1 e-Cigarette/Vaping Use: Never Used Second Hand Smoke Exposure: Yes service: No Current occupational status: employed 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 Cognitive needs: No Hearing needs: No Vision needs: No Physical Exam Vital Signs: BMI result Body Mass Index 25.0 Const Other: Well-nourished well-developed very friendly male awake alert and oriented x3 in no acute distress Extrem Other: Bilateral lower extremity examination shows good capillary refill, no skin lesions noted, normal sensation light touch Bilateral knee examination shows minimal effusions, minimal crepitus with range of motion, no focal tenderness, negative Alethea's test, no instability Results Reviewed Results Reviewed: X-rays of the patient's bilateral knee show mild diffuse joint space narrowing, no acute bony abnormalities Assessment & Plan Assessment & Plan (1) Bilateral knee pain: Code(s): M25.561 - Pain in right knee; M25.562 - Pain in left knee Plan Mr. Marin presents with bilateral knee pains most likely due to quadriceps tendinosis, hamstrings tightness and iliotibial band syndrome. I had a lengthy discussion with the patient regarding the treatment options. We will hold off on a cortisone injection at this time. The patient will continue with his home stretching program. He will also continue formal physical therapy. He will follow up with me on an as-needed basis should his symptoms not plateau at an unacceptable level over the next few months. Feel free to call me at any time should questions regarding his orthopedic management arise. Thank you very much for asking me to see this very friendly gentleman. I spent 22 minutes in reviewing the patient's records and imaging studies, seeing the patient and documenting in the medical record. Coding Level of Care Code New Pt Level 2 (16631) Diagnoses Bilateral knee pain M25.561; M25.562
== END 2023-03-16 11:24 | disposition home or self-care (01) ==
PROVIDERS: PCP Internal Medicine; Visit Provider Orthopaedic Surgery
DX: M25.561 Pain in right knee (principal); M25.562 Pain in left knee
CPT/HCPCS: 99202

== ENCOUNTER → 2023-03-16 10:30 | Outpatient (BNVA) | payer OTHER, SELFPAY | PROVIDERS: PCP Internal Medicine; Visit Provider Orthopaedic Surgery ==

== ENCOUNTER 2023-04-02 14:00 | Outpatient (RCR) | payer OTHER, SELFPAY ==
--- NOTE | 2023-03-14 14:42 | MHC.PT.EP ---
[facility] [place] [facility] [place] [facility] [place] [facility] [address] [phone] F: [phone] F: [phone] F: [phone] F: [phone] Physical Therapy Plan of Care Date of Evaluation: Date of Surgery: NA Diagnosis: Pain in R knee and pain in L knee Assessment: López is a 42 year old male who is referred to PT for pain in L knee and pain in R knee . He reports of having sudden onset of knee pain/ achiness in B knee about 4 months back. He denies any trauma or falls. On PT examination he reports of having 3/10 pain with sitting, sleeping/ resting and no pain with movements, no TTP, B Knee gross ROM WNL, and decreased strength in B LE. In addition he presents with tightness in B quads, hamstring, and calves. No gross postural deviation or gait deviation noted. 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 He would benefit from skilled PT to address the aforementioned impairments and improve tolerance to functional activities. Frequency and Duration: The patient will be seen 2/week for 4 weeks. Short Term Goals: 1. Pt will have 50% decrease in pain which will enable him to sleep through the night without pain in 2 weeks 2. Pt will demonstrate good muscle flexibility in B LE which will enable him to sit for prolonged periods of time without pain in 3 weeks. Night Assistant Goals: 1. Pt will demonstrate an increase in muscle strength by 1 grade which will enable him to go through all ADLS without pain/ discomfort and compression socks in 4 weeks. 2. Pt will be independent with HEP for symptom management and maintenance following d/c in 4 weeks. Treatment Plan: Modalities to reduce pain, spasms and effusion. Manual therapy to restore motion and function. Therapeutic exercise to improve strength and flexibility. Neuromuscular re-education for posture and balance. Therapeutic activities to return to functional activities of daily living. Electronically signed by: Alanis Sultana PT DPT Please sign and return to therapist. Thank you for your referral.
--- NOTE | 2023-05-04 13:20 | MHC.PT.DC ---
[facility] [place] [facility] [place] [facility] [place] [facility] [address] [phone] F: [phone] F: [phone] F: [phone] F: [phone] Physical Therapy Discharge Report Diagnosis: Pain in R knee and pain in L knee Date of Surgery: NA Date of Evaluation: 03/14/23 Date of Discharge: 05/04/23 Treatments to Date: 3 Cancellations to Date: 0 No Shows to Date: Discharge Status: Achieved Goals Improved Function Independent with HEP Discharge Summary: López attended only 3 PT visits and reported of feeling significantly better. He therefore d/c himself from PT. Electronically signed by: Alanis Sultana PT DPT Please sign and return to therapist. Thank you for your referral.
== END 2023-05-04 13:20 | disposition home or self-care (01) ==
LOC: HO.PT 14:00
PROVIDERS: PCP Internal Medicine; Visit Provider Nurse Practitioner Family
DX: M25.561 Pain in right knee (principal); M25.562 Pain in left knee
CPT/HCPCS: 97110; 97161; 97530

== ENCOUNTER 2023-07-11 06:03 | Outpatient (REF) | payer OTHER, SELFPAY ==
[2023-07-11 07:46] LABS: Alanine Aminotransferase 33 U/L (0-40); Albumin Level 4.7 g/dL (3.5-5.0); Alkaline Phosphatase 39 U/L (39-117); Anion Gap 17 (12-20); Aspartate Amino Transferase 32 U/L (5-37); Bilirubin Total 0.7 mg/dL (0.0-1.0); Blood Urea Nitrogen 15 mg/dL (9-16); Calcium 9.8 mg/dL (8.4-10.2); Carbon Dioxide 26 mmol/L (22-29); Chloride 100 mmol/L (96-108); Cholesterol 237 mg/dL (<200); Estimated Glomerular Filt Rate > 60; Glucose Fasting 103 mg/dL (60-99); HDL Cholesterol 53 mg/dL (>40); LDL Cholesterol Calculated 130 mg/dL (<100); Potassium 3.9 mmol/L (3.3-5.1); Sodium 139 mmol/L (135-145); Total Protein 7.6 g/dL (6.5-8.0); Triglycerides 274 mg/dL (<150)
== END 2023-07-11 06:04 | disposition home or self-care (01) ==
LOC: HO.LAB 06:03
PROVIDERS: PCP Internal Medicine; Visit Provider Internal Medicine
DX: E78.00 Pure hypercholesterolemia, unspecified (principal)
CPT/HCPCS: 36415; 80053; 80061

== ENCOUNTER 2024-04-29 14:12 | Outpatient (AMB) | payer BC, SELFPAY ==
--- NOTE | 2024-04-29 14:19 | MHC.OFFWIV ---
Intake Vital Signs 04/29/24 14:20 Height 5 ft 6 in Weight 146 lb BMI 23.6 BP 122/90 H Blood Pressure Location Lt brachial Position Sitting Pulse 85 Pulse Source Pulse Oximeter Pulse Oximetry (%) 97 Oxygen Delivery Method Room Air Intake Visit Reasons: EP-rt hand pointer finger pain Intake Note: Patient here for right hand pointer finger pain/burning in joint area. Patient Tobacco Use Status: Current everyday Tobacco user Allergies No Known Allergies Allergy (Mild, Verified 04/29/24 14:22) NONE Do you need a note to return to daycare/school/sports/work: No HPI HPI Comments History of Present Illness Details 44 y/o male patient who presents to the walk in clinic with c/o right index finger pain and tingling for ~ 1 month. Reports pain with making a complete Fist. Denies injury or trauma. 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 Cognitive needs: No Hearing needs: No Vision needs: No Review of Systems Const All systems reviewed & are unremarkable except as noted in HPI and below Physical Exam Vital Signs: Last Vital Signs Pulse 85 04/29/24 14:20 BP 122/90 H 04/29/24 14:20 Pulse Ox 97 04/29/24 14:20 Oxygen Delivery Method Room Air 04/29/24 14:20 BMI result Body Mass Index 23.6 Const General: cooperative, comfortable and no acute distress Orientation/consciousness: patient oriented x3 Skin General skin exam: no rashes or lesions noted Neuro General: patient oriented x3 Extrem General: Yes normal to inspection and Yes full ROM Right upper extremity: normal to inspection, full ROM and Extremity exam: right hand Details: normal to inspection, normal capillary refill, neuromotor exam normal, neurosensory exam normal, tendon exam normal, normal ROM of fingers and no swelling; no lacerations, no ecchymosis and no crepitus Left upper extremity: normal to inspection and full ROM Psych Speech and movement: Normal speech and movement present Assessment & Plan Assessment & Plan (1) Strain of extensor muscle, fascia and tendon of right index finger at forearm level, initial encounter: Code(s): S56.411A - Strain of extensor muscle, fascia and tendon of right index finger at forearm level, initial encounter Plan: NSAIDs for pain relief F/U with PCP if not better. Coding Level of Care Code Est Pt Level 3 (39442) Diagnoses Strain of extensor muscle, fascia and tendon of right index finger at forearm level, initial encounter S56.411A Time Spent (min) 15
[2024-04-29 14:20] VITALS: BP 122/90; PULSE 85; O2SAT 97; BMI 23.6
== END 2024-04-29 14:45 | disposition home or self-care (01) ==
PROVIDERS: PCP Internal Medicine; Visit Provider Nurse Practitioner Family
DX: S56.411A Strain of extensor muscle, fascia and tendon of right index finger at forearm level, initial encounter (principal)

== ENCOUNTER → 2024-04-29 14:12 | Outpatient (BNVA) | payer BC, SELFPAY | PROVIDERS: PCP Internal Medicine; Visit Provider Nurse Practitioner Family ==

== ENCOUNTER 2024-12-16 09:39 | Outpatient (AMB) | payer BC, SELFPAY ==
[2024-12-16 09:42] VITALS: BP 130/90; PULSE 90; RESP 16; TEMP 37; O2SAT 96; BMI 25.2
--- NOTE | 2024-12-16 09:42 | MHC.PC.OV ---
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 Accompanied by: Self / Same As Patient Allergies No Known Allergies Allergy (Mild, Verified 12/16/24 09:57) NONE Medication List - Last Reconciled 12/16/24 by VIN Willis atorvastatin 10 mg PO DAILY 90 days cholecalciferol (vitamin D3) 50 mcg PO DAILY 90 days cyclobenzaprine 5 mg PO TID PRN 30 days ibuprofen 600 mg PO Q8H PRN Tobacco use date assessed: 12/16/24 Dental Screening Dental Screen Date: 12/16/24 Did you have a dental visit in the last 12 months?: Yes Did you have a dental problem in the last 6 months where you did not have access to dental care?: No Was dental information given to patient?: Patient has dentist HPI b/l leg weakness HPI Details The patient is a 44-year-old male presenting with complaints of bilateral leg weakness The patient is a 44-year-old male presenting with complaints of muscle spasms and pain in both knees. The symptoms commenced two years ago, resolving spontaneously after a reduction in cycling intensity. He reports a recurrence approximately a month and a half ago, characterized by twitching and tightness in the leg muscles, particularly when at rest. These are not accompanied by observable joint abnormalities. The patient has been managing symptoms with stretching exercises and magnesium oil without persistent relief. He reports a history of hypercholesterolemia, currently managed with atorvastatin, and acknowledges that muscle symptoms coincided with the initiation of this medication several years ago. The patient was last seen in office on 03/13/2023. He was supposed to follow up with Dr. Carrizales on his chronic conditions. He has not completed his preordered labs. We will have the patient return to evaluate his chronic conditions and leg/knee pain/muscle tightness in 6 weeks. 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 1. Little interest or pleasure in doing things: nearly every day 2. Feeling down, depressed, or hopeless: not at all 3. Trouble falling or staying asleep, or sleeping too much: several days 4. Feeling tired or having little energy: not at all 5. Poor appetite or overeating: not at all 6. Feeling bad about yourself - or that you are a failure or have let yourself or your family down: not at all 7. Trouble concentrating on things, such as reading the newspaper or watching television: not at all 8. Moving or speaking so slowly that other people could have noticed. Or the opposite - being so fidgety or restless that you have been moving around a lot more than usual: not at all 9. Thoughts that you would be better off or of hurting yourself in some way: not at all Total score: 4 Depression Screening Interpretation: Positive Depression Screening Done: Yes 00070 - PHQ-9 Billing: Yes Source: Developed by Drs. Bill Pardo, Rachel Prasad, Edvin Baugh and colleagues, with an educational portia from [employer]. Thrive Questionnaire Date Thrive assessed: 12/16/24 I am a: Patient What is your living situation today?: I have a steady place to live Within the past 12 months, did the food you bought not last and you didn't have the money to get more?: I choose not to answer this question Within the past 12 months, did you worry whether your food would run out before you got money to buy more?: Never true Do you have trouble paying for medicines?: No Do you have trouble getting transportation to medical appointments?: No Do you have trouble paying your heating and electricity bill?: No Do you have trouble taking care of your child, family member or friend?: No Do you have trouble with day-to-day activities such as bathing, preparing meals, shopping, managing finances, etc.?: No Are you currently unemployed and looking for a job?: No Are you interested in more education?: No Please select the resources that you would like help with: None Currently or been in a relationship where the following occur: No concerns reported and I choose not to answer THRIVE Score: 0 AUDIT C Alcohol Use Questionnaire (AUDIT-C) 1. How often do you have a drink containing alcohol?: 2-4 times a month 2. How many drinks containing alcohol do you have on a typical day when you are drinking?: 3 or 4 3. How often do you have six or more drinks on one occasion?: Weekly Total Score: 6 Score Reviewed/Action Taken: Yes ALIA-7 AMB Questionnaire ALIA-7 Date ALIA - 7 assessed: 12/16/24 Feeling nervous, anxious, or on edge: 0 = Not at all Not being able to stop or control worryin = Not at all Worrying too much about different things: 0 = Not at all Trouble relaxin = Not at all Being so restless that it is hard to sit still: 0 = Not at all Becoming easily annoyed or irritable: 0 = Not at all Feeling afraid as if something awful might happen: 0 = Not at all Total ALIA-7 score (0-4 normal; 5-9 mild; 10-14 moderate; 15-21 severe): 0 Source: Developed by Drs. Bill Pardo, Rachel Prasad, Edvin Baugh and colleagues, with an educational portia from [employer]. ALIA-7 Assessment Billing ALIA-7 Assessment Tool: ALIA-7 Assessment 70728 Review of Systems Const Denies headache(s) Eyes Denies loss of vision ENT Denies vertigo, Denies dizziness, Denies headache(s) and Denies sore throat Card Denies chest pain, Denies leg edema and Denies lightheadedness Resp Denies cough, Denies hemoptysis and Denies wheezing GI Denies abdominal pain, Denies melena, Denies constipation, Denies diarrhea and Denies vomiting Denies dysuria, Denies urinary frequency and Denies urinary urgency Musc Reports no additional complaints, Reports arthralgias (bilateral knees), Denies joint swelling, Reports muscle cramps (legs associated with rest), Denies numbness and Denies tingling Neuro Denies Abnormal speech present, Denies vertigo, Denies dizziness, Denies headache(s), Denies loss of vision, Denies numbness and Denies tingling Jeff/Lymph Denies easy bleeding and Denies easy bruising Aller/Immun Denies wheezing Physical exam (Primary Care) Vital Signs: Last Vital Signs Temp 98.6 F 12/16/24 09:42 Pulse 90 12/16/24 09:42 Resp 16 12/16/24 09:42 BP 130/90 H 12/16/24 09:42 Pulse Ox 96 12/16/24 09:42 Oxygen Delivery Method Room Air 12/16/24 09:42 BMI result Body Mass Index 25.2 Tobacco/Smoking Status: Tobacco use Status Tobacco use date assessed 12/16/24 12/16/24 09:51 Patient Tobacco Use Status Current everyday Tobacco 12/16/24 09:51 Tobacco use type Cigar 12/16/24 09:51 e-Cigarette/Vaping Use Never Used 12/16/24 09:51 PHQ-9: PHQ-9 Score PHQ-9: Total score 4 12/25/24 22:43 Depression Screening Interpretation: Positive Thrive Assessment: Date of Thrive Assessment Date Thrive assessed 12/16/24 12/16/24 09:51 Currently or been in a relationship where the following occur: No concerns reported and I choose not to answer Const General: healthy appearing, no acute distress, alert and awake Nutritional Appearance: well nourished Orientation/consciousness: oriented to person, oriented to place and oriented to time HENMT Ears: TM's normal bilaterally General nose exam: Normal nasal mucous membranes and turbinates present Eyes Conjunctivae: conjunctivae normal Sclerae: sclerae normal Pupils: Equal, round and reactive pupils present Neck Neck: Yes no lymphadenopathy and Yes no JVD Thyroid: Thyroid normal Carotids: no bruits Resp Effort & Inspection: normal respiratory effort and not tachypneic Auscultation: no crackles, no rales, no rhonchi and no wheezes Cardio Rate: regular rate Rhythm: regular rhythm Heart sounds: no murmurs and normal S1 and S2 GI Palpation (GI): Soft to palpation, nontender, no hepatomegaly and no splenomegaly Auscultation: normal bowel sounds General: Yes no CVA tenderness Back/Spine/Pelvis Back: no CVA tenderness Skin General skin exam: no rashes or lesions noted and dry skin Neuro General: oriented to person, oriented to place and oriented to time Cranial nerves: Yes Equal, round and reactive pupils present Speech: No Abnormal speech present Gait exam (Neuro): Normal gait present Motor exam (neuro): no tremor noted Extrem Right upper extremity: full ROM Left upper extremity: full ROM Right lower extremity: full ROM and lower leg Details: no tenderness; no edema Left lower extremity: full ROM and lower leg Details: no tenderness; no edema Coding Level of Care Code Est Pt Level 3 (38499) Diagnoses Leg cramps R25.2 Chronic pain of both knees M25.561; M25.562; G89.29 Chronicity: chronic Pure hypercholesterolemia E78.00 Additional Codes ALIA-7 Assessment Billing - ALIA-7 Assessment Tool: ALIA-7 Assessment 91746 ([id number]) PHQ-9 - 05068 - PHQ-9 Billing: Yes ([id number]) Time Spent (min) 34 Assessment & Plan Assessment & Plan (1) Leg cramps: Code(s): R25.2 - Cramp and spasm Category: Medical (2) Bilateral knee pain: Code(s): M25.561 - Pain in right knee; M25.562 - Pain in left knee Category: Medical Qualifiers: Chronicity: chronic Qualified Code(s): M25.561 - Pain in right knee; M25.562 - Pain in left knee; G89.29 - Other chronic pain (3) Pure hypercholesterolemia: Code(s): E78.00 - Pure hypercholesterolemia, unspecified Category: Medical Plan The management strategy includes the initiation of gabapentin for muscle spasms and restless leg syndrome symptoms, with dosing adjusted based on the patient's response and tolerance. Laboratory tests will evaluate for potential electrolyte imbalances and assess inflammatory markers, which could contribute to muscle and joint symptoms. The patient's current statin therapy, atorvastatin, will be reviewed in the context of muscle spasm onset. Ongoing stretching regimens and topical magnesium remain advisable, with a consideration for supplementing oral magnesium based on laboratory findings. Patient was informed and verbally consented to the use of an ambient scribe for clinic note documentation during this visit. Orders: Orders Comprehensive [place]. Panel Fast 12/16/24 M25.561 - Pain in right knee, M25.562 - Pain in left knee, R25.2 - Cramp and spasm, Z00.00 - Encounter for general adult medical examination without abnormal findings, E78.00 - Pure hypercholesterolemia, unspecified, J30.9 - Allergic rhinitis, unspecified, R79.89 - Other specified abnormal findings of blood chemistry Lipid Panel 12/16/24 M25.561 - Pain in right knee, M25.562 - Pain in left knee, R25.2 - Cramp and spasm, Z00.00 - Encounter for general adult medical examination without abnormal findings, E78.00 - Pure hypercholesterolemia, unspecified, J30.9 - Allergic rhinitis, unspecified, R79.89 - Other specified abnormal findings of blood chemistry UA CC w/rflx Micro + Cult 12/16/24 M25.561 - Pain in right knee, M25.562 - Pain in left knee, R25.2 - Cramp and spasm, Z00.00 - Encounter for general adult medical examination without abnormal findings, E78.00 - Pure hypercholesterolemia, unspecified, J30.9 - Allergic rhinitis, unspecified, R79.89 - Other specified abnormal findings of blood chemistry CRP High Sensitivity 12/16/24 M25.50 - Pain in unspecified joint Erythrocyte Sedimentation Rate 12/16/24 M25.50 - Pain in unspecified joint Complete Blood Count Auto Diff 12/16/24 M25.561 - Pain in right knee, M25.562 - Pain in left knee, R25.2 - Cramp and spasm, Z00.00 - Encounter for general adult medical examination without abnormal findings, E78.00 - Pure hypercholesterolemia, unspecified, J30.9 - Allergic rhinitis, unspecified, R79.89 - Other specified abnormal findings of blood chemistry TSH reflex Free T4 12/16/24 M25.561 - Pain in right knee, M25.562 - Pain in left knee, R25.2 - Cramp and spasm, Z00.00 - Encounter for general adult medical examination without abnormal findings, E78.00 - Pure hypercholesterolemia, unspecified, J30.9 - Allergic rhinitis, unspecified, R79.89 - Other specified abnormal findings of blood chemistry Magnesium 12/16/24 M25.561 - Pain in right knee, M25.562 - Pain in left knee, R25.2 - Cramp and spasm, Z00.00 - Encounter for general adult medical examination without abnormal findings, E78.00 - Pure hypercholesterolemia, unspecified, J30.9 - Allergic rhinitis, unspecified, R79.89 - Other specified abnormal findings of blood chemistry Vitamin D 25-OH Total 12/16/24 M25.561 - Pain in right knee, M25.562 - Pain in left knee, R25.2 - Cramp and spasm, Z00.00 - Encounter for general adult medical examination without abnormal findings, E78.00 - Pure hypercholesterolemia, unspecified, J30.9 - Allergic rhinitis, unspecified, R79.89 - Other specified abnormal findings of blood chemistry Medications: New gabapentin 100 mg PO TID 90 caps 1RF
== END 2024-12-16 10:26 | disposition home or self-care (01) ==
LOC: HO.HMCH 09:40
PROVIDERS: PCP Internal Medicine
DX: R25.2 Cramp and spasm (principal); M25.561 Pain in right knee; M25.562 Pain in left knee; G89.29 Other chronic pain; E78.00 Pure hypercholesterolemia, unspecified

== ENCOUNTER → 2024-12-16 09:39 | Outpatient (BNVA) | payer BC, SELFPAY | PROVIDERS: PCP Internal Medicine | DX: R53.1 Weakness (principal); M25.561 Pain in right knee; M25.562 Pain in left knee; R25.2 Cramp and spasm; G89.29 Other chronic pain; E78.00 Pure hypercholesterolemia, unspecified; R79.89 Other specified abnormal findings of blood chemistry | CPT/HCPCS: 96127 ==

== ENCOUNTER 2025-01-23 06:35 | Outpatient (REF) | payer BC, SELFPAY ==
[2025-01-23 06:52] LABS: MANUAL DIFF FLAG NO
[2025-01-23 07:43] LABS: Hematocrit 41.3 % (42.0-52.0); Hemoglobin 14.1 g/dl (14.0-18.0); Imm Gran Abs Auto 0.02 X10*3/uL (0.00-0.03); Imm Gran Pct Auto 0.3 % (0.0-0.4); Lymphocytes Absolute Auto 2.1 X10*3/uL (1.2-4.9); Mean Corpuscular HGB Conc 34.1 g/dl (31.0-36.0); Mean Corpuscular Hemoglobin 31.1 pg (27.0-33.0); Mean Corpuscular Volume 91.2 fL (80.0-98.0); NRBC Abs Auto 0.000 X10*3/uL (0.0-0.012); NRBC Pct Auto 0.0 /100WBC (0.0-0.2); Platelet Count 231 X10*3/uL (160-400); Red Blood Count 4.53 X10*6/uL (4.60-5.80); White Blood Count 6.4 X10*3/uL (4.8-10.8)
[2025-01-23 08:28] LABS: Alanine Aminotransferase 62 U/L (0-40); Albumin Level 4.8 g/dL (3.5-5.0); Alkaline Phosphatase 38 U/L (39-117); Anion Gap 13 (12-20); Aspartate Amino Transferase 54 U/L (5-37); Blood Urea Nitrogen 15 mg/dL (9-16); Calcium 9.2 mg/dL (8.4-10.2); Carbon Dioxide 27 mmol/L (22-29); Chloride 103 mmol/L (96-108); Cholesterol 222 mg/dL (<200); Estimated Glomerular Filt Rate > 60; HDL Cholesterol 44 mg/dL (>40); Magnesium 2.1 mg/dL (1.6-2.6); Potassium 4.0 mmol/L (3.3-5.1); Sodium 139 mmol/L (135-145); Total Protein 7.1 g/dL (6.5-8.0); Triglycerides 186 mg/dL (<150)
== END 2025-01-23 06:36 | disposition home or self-care (01) ==
LOC: HO.LAB 06:35
PROVIDERS: PCP Internal Medicine
DX: Z00.00 Encounter for general adult medical examination without abnormal findings (principal); M25.561 Pain in right knee; M25.562 Pain in left knee; R25.2 Cramp and spasm; E78.00 Pure hypercholesterolemia, unspecified; J30.9 Allergic rhinitis, unspecified; R79.89 Other specified abnormal findings of blood chemistry; M25.50 Pain in unspecified joint
CPT/HCPCS: 36415; 80053; 80061; 82306; 83735; 84443; 85025; 85652; 86141

== ENCOUNTER 2025-01-27 07:31 | Outpatient (REF) | payer BC, SELFPAY ==
--- OUTSIDE RECORDS SUMMARY | 2025-01-28 07:33 | XMS_ITS | Encounter Summary ---
Author Organization [employer] Address [address] [place] [address] Care Team Providers Care Receiver Dispatcher Name Role Phone Unavailable Primary Care Provider Unavailabl e Reason for Visit * Reason Onset Date Comments insurance 03/31/2024 Encounter Details Date Type Department Care Team (Late st Contact Info) Description 03/31/2024 Telephone [facility] ADULT DENTAL [address] [place] [place], [place] [phone] Kalyan Juarez, DMD [address] [place], [place] [phone] insurance Social History Tobacco Use Types Packs/Day Years Used Date Smoking Tobacco: Some Days Cigars Smokeless Tobacco: Never Alcohol Use Standard Drinks/Week Comments Not Currently 0 (1 standard drink = 0.6 oz pur e alcohol) Sex and Gender Information Value Date Recorded Sex Assigned at Male 05/15/2022 10:25 AM EDT Legal Sex Male 10:25 AM EDT Gender Identity Male 08/14/2022 2:09 PM EST Sexual Orientation Choose not to disclose 2021 10:25 AM EDT documented as of this encounter Miscellaneous Notes * Telephone Encounter - Nya Smith - 03/31/2024 8:59 AM EDT Patient scheduled for periodic exam on 04/14. He also lost his partials. He got them last year and is aware that health safety met will not cover them due to him not being due for them until 7 year fran. He did say that he also has BCBS insurance from his job. He did not have the insurance id number on him at the time that he scheduled appt. I did tell him that he had to call back as soon as possible (48 hours) to provide insurance id information to add to his chart. Patient understood and stated he would call back to provide insurance information. documented in this encounter Plan of Treatment Upcoming Encounters Date Type Department Care Team (Late st Contact Info) Description 02/26/2025 3:00 PM EDT Office Visit [facility] ADULT D[facility]AL [address] [place] [address] Kalyan Juarez, DMD [address] [place] [address] documented as of this encounter Visit Diagnoses Not on filedocumented in this encounter
[2025-01-28 07:58] LABS: Appearance Urine Clear; Glucose Urine UA Negative (Negative); PH 5.5 (5.0-9.0); Specific Gravity - Urine 1.010 (1.005-1.025)
== END 2025-01-27 07:32 | disposition home or self-care (01) ==
LOC: HO.LNP 07:31
DX: Z00.00 Encounter for general adult medical examination without abnormal findings (principal); M25.561 Pain in right knee; M25.562 Pain in left knee; R25.2 Cramp and spasm; E78.00 Pure hypercholesterolemia, unspecified; J30.9 Allergic rhinitis, unspecified; R79.89 Other specified abnormal findings of blood chemistry; M25.50 Pain in unspecified joint
CPT/HCPCS: 81003

== ENCOUNTER 2025-01-29 14:56 | Outpatient (AMB) | payer BC, SELFPAY ==
[2025-01-29 15:05] VITALS: BP 100/80; PULSE 84; O2SAT 94; BMI 25.4
--- NOTE | 2025-01-29 15:05 | A.OFFPC_ITS ---
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 Helper Required: No Accompanied by: Self / Same As Patient Allergies No Known Allergies Allergy (Mild, Verified 02/15/25 17:48) NONE Medication List - Last Reconciled 02/15/25 by IVN Willis atorvastatin 10 mg PO DAILY 90 days cholecalciferol (vitamin D3) 50 mcg PO DAILY 90 days cyclobenzaprine 5 mg PO TID PRN 30 days gabapentin 100 mg PO TID ibuprofen 600 mg PO Q8H PRN Tobacco use date assessed: 01/29/25 Dental Screening Dental Screen Date: 01/29/25 Did you have a dental visit in the last 12 months?: Yes Did you have a dental problem in the last 6 months where you did not have access to dental care?: No Was dental information given to patient?: Patient has dentist HPI 6 weeks f/u leg pain/cramps/hld HPI Details The patient is a 44-year-old male presenting with muscle spasms and restless legs syndrome. The muscle spasms have been persistent, with twitching in the calves occurring throughout the day and night. The patient reports that muscle relaxants have not alleviated the spasms, although they have reduced the associated pain. The spasms have been ongoing despite attempts to manage them with magnesium supplements and hydration. The patient has a history of hypercholesterolemia, with recent lab results indicating an increase in LDL cholesterol from 130 mg/dL to 140 mg/dL and a decrease in HDL cholesterol from 53 mg/dL to 44 mg/dL. The patient has been inconsistent with taking omega-3 supplements and has been consuming a significant amount of olive oil, which should not increase his cholesterol levels. The patient consumes alcohol regularly, with a pattern of drinking a six-pack of beer on weekends and occasional whiskey. There is concern about the impact of alcohol on liver function and nerve health, as the patient has experienced symptoms consistent with restless legs syndrome. The patient reports symptoms consistent with restless legs syndrome, including aching knees and twitching muscles, which are alleviated by gabapentin. The patient has been using gabapentin primarily at night but has considered taking the medication has ordered TID to manage symptoms more effectively. 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 1. Little interest or pleasure in doing things: nearly every day 2. Feeling down, depressed, or hopeless: not at all 3. Trouble falling or staying asleep, or sleeping too much: several days 4. Feeling tired or having little energy: not at all 5. Poor appetite or overeating: not at all 6. Feeling bad about yourself - or that you are a failure or have let yourself or your family down: not at all 7. Trouble concentrating on things, such as reading the newspaper or watching television: not at all 8. Moving or speaking so slowly that other people could have noticed. Or the opposite - being so fidgety or restless that you have been moving around a lot more than usual: not at all 9. Thoughts that you would be better off or of hurting yourself in some way: not at all Total score: 4 Depression Screening Interpretation: Positive Depression Screening Done: Yes Source: Developed by Drs. Bill Pardo, Rachel Prasad, Edvin Baugh and colleagues, with an educational portia from [employer]. Thrive Questionnaire Date Thrive assessed: 01/29/25 I am a: Patient What is your living situation today?: I have a steady place to live Within the past 12 months, did the food you bought not last and you didn't have the money to get more?: I choose not to answer this question Within the past 12 months, did you worry whether your food would run out before you got money to buy more?: Never true Do you have trouble paying for medicines?: No Do you have trouble getting transportation to medical appointments?: No Do you have trouble paying your heating and electricity bill?: No Do you have trouble taking care of your child, family member or friend?: No Do you have trouble with day-to-day activities such as bathing, preparing meals, shopping, managing finances, etc.?: No Are you currently unemployed and looking for a job?: No Are you interested in more education?: No Please select the resources that you would like help with: None Currently or been in a relationship where the following occur: No concerns reported THRIVE Score: 0 AUDIT C Alcohol Use Questionnaire (AUDIT-C) 1. How often do you have a drink containing alcohol?: 2-4 times a month 2. How many drinks containing alcohol do you have on a typical day when you are drinking?: 3 or 4 3. How often do you have six or more drinks on one occasion?: Weekly Total Score: 6 Score Reviewed/Action Taken: Yes ALIA-7 AMB Questionnaire ALIA-7 Date ALIA - 7 assessed: 01/29/25 Feeling nervous, anxious, or on edge: 0 = Not at all Not being able to stop or control worryin = Not at all Worrying too much about different things: 0 = Not at all Trouble relaxin = Not at all Being so restless that it is hard to sit still: 0 = Not at all Becoming easily annoyed or irritable: 0 = Not at all Feeling afraid as if something awful might happen: 0 = Not at all Total ALIA-7 score (0-4 normal; 5-9 mild; 10-14 moderate; 15-21 severe): 0 Source: Developed by Drs. Bill Pardo, Rachel Prasad, Edvin Baugh and colleagues, with an educational portia from [employer]. ALIA-7 Assessment Billing ALIA-7 Assessment Tool: ALIA-7 Assessment 81820 Review of Systems Const Denies body aches, Denies chills, Denies fever(s), Denies headache(s) and Denies poor appetite Eyes Reports no additional complaints ENT Denies dysphagia, Denies dizziness, Denies headache(s) and Denies odynophagia Card Denies chest pain, Denies syncope, Denies edema, Denies irregular heart rhythm, Denies lightheadedness and Denies dyspnea Resp Denies cough and Denies dyspnea GI Denies abdominal pain, Denies constipation, Denies dysphagia, Denies diarrhea, Denies nausea, Denies odynophagia and Denies vomiting Reports no additional complaints Musc Reports no additional complaints, Denies abnormal gait and Reports other (Muscle twitching in bilateral calves, nerve pain improved with treatment) Skin/Breast Reports system reviewed and no additional complaints, except as documented Neuro Denies abnormal gait, Denies dizziness, Denies syncope and Denies headache(s) Psych Reports no additional complaints Physical exam (Primary Care) Vital Signs: Last Vital Signs Pulse 84 01/29/25 15:05 BP 100/80 01/29/25 15:05 Pulse Ox 94 01/29/25 15:05 Oxygen Delivery Method Room Air 01/29/25 15:05 BMI result Body Mass Index 25.4 Tobacco/Smoking Status: Tobacco use Status Tobacco use date assessed 01/29/25 01/29/25 15:12 Patient Tobacco Use Status Current everyday Tobacco 01/29/25 15:12 Tobacco use type Cigar 01/29/25 15:12 e-Cigarette/Vaping Use Never Used 01/29/25 15:12 PHQ-9: PHQ-9 Score PHQ-9: Total score 4 01/29/25 15:33 Depression Screening Interpretation: Positive Thrive Assessment: Date of Thrive Assessment Date Thrive assessed 01/29/25 01/29/25 15:12 Currently or been in a relationship where the following occur: No concerns reported Const General: cooperative, healthy appearing, comfortable and no acute distress Orientation/consciousness: patient oriented x3 HENMT Head: Yes normocephalic Ears: hearing grossly normal bilaterally General nose exam: Normal external nose present Eyes General: appearance normal, both eyes and all related structures Conjunctivae: conjunctivae normal Neck Neck: Yes full ROM and Yes no lymphadenopathy Resp Effort & Inspection: normal respiratory effort Auscultation: clear to auscultation bilaterally, no crackles, no rales, no rhonchi and no wheezes Cardio Rate: regular rate Rhythm: regular rhythm Heart sounds: S1 normal heart sound present and no murmurs General: Yes no CVA tenderness Back/Spine/Pelvis Back: no CVA tenderness Skin General skin exam: no rashes or lesions noted Neuro General: patient oriented x3 Gait exam (Neuro): Normal gait present Motor exam (neuro): 5/5 motor strength present throughout Extrem General: Yes normal to inspection, Yes full ROM and No edema Right upper extremity: full ROM Left upper extremity: full ROM Right lower extremity: full ROM; no edema Left lower extremity: full ROM; no edema Psych Affect: normal affect Attitude: cooperative Insight: Good insight present (Psych) Judgement: Good judgement present (Psych) Results Reviewed Results Reviewed: Laboratory Tests 01/23/25 01/27/25 06:50 15:52 WBC 6.4 RBC 4.53 L Hgb 14.1 Hct 41.3 L MCV 91.2 MCH 31.1 MCHC 34.1 RDW 13.2 Plt Count 231 MPV 11.7 Sodium 139 Potassium 4.0 Chloride 103 Carbon Dioxide 27 Anion Gap 13 BUN 15 Creatinine 0.70 Estimated GFR > 60 Fasting Glucose 101 H Calcium 9.2 D Magnesium 2.1 Total Bilirubin 0.3 AST 54 H ALT 62 H Alkaline Phosphatase 38 L C-React Prot High Sens 2.2 Total Protein 7.1 Albumin 4.8 Triglycerides 186 H Cholesterol 222 H LDL Cholesterol, Calc 141 H HDL Cholesterol 44 25-OH Vitamin D Total 32.7 TSH 1.20 Urine Color Yellow Urine Appearance Clear Urine pH 5.5 Ur Specific [place] 1.010 Urine Protein Negative Urine Glucose (UA) Negative Urine Ketones Negative Urine Blood Negative Urine Nitrite Negative Ur Leukocyte Esterase Negative Coding Level of Care Code Est Pt Level 3 (36072) Diagnoses Muscle twitching R25.3 Bilateral leg cramps R25.2 Elevated LFTs R79.89 Pure hypercholesterolemia E78.00 Vitamin D deficiency E55.9 Additional Codes ALIA-7 Assessment Billing - ALIA-7 Assessment Tool: ALIA-7 Assessment 31892 ([id number]) Time Spent (min) 35 Assessment & Plan Assessment & Plan (1) Muscle twitching: Code(s): R25.3 - Fasciculation Category: Medical (2) Bilateral leg cramps: Code(s): R25.2 - Cramp and spasm Category: Medical (3) Elevated LFTs: Code(s): R79.89 - Other specified abnormal findings of blood chemistry Category: Medical (4) Pure hypercholesterolemia: Code(s): E78.00 - Pure hypercholesterolemia, unspecified Category: Medical (5) Vitamin D deficiency: Code(s): E55.9 - Vitamin D deficiency, unspecified Category: Medical Plan The patient will continue taking gabapentin, with consideration to take as ordered TID to manage muscle spasms and restless legs syndrome more effectively. Alcohol consumption should be reduced to improve liver function and potentially alleviate neurological symptoms. The patient is advised to maintain a consistent intake of omega-3 supplements and reduce the use of olive oil to manage cholesterol levels. Atorvastatin 10 daily started. Vitamin D 3 started as well. Patient has elevated liver enzymes. AST 54, ALT 62Reinforced decreasing alcohol consumption, only use Tylenol sparingly Triglycerides 186, total cholesterol 222, LDL 141, HDL 44. Reinforced low- cholesterol diet Follow-up labs will be conducted in three months to monitor cholesterol levels and liver function. Patient was informed and verbally consented to the use of an ambient scribe for clinic note documentation during this visit. Orders: Orders Vitamin D 25-OH Total 3 Months E78.00 - Pure hypercholesterolemia, unspecified, E55.9 - Vitamin D deficiency, unspecified, R79.89 - Other specified abnormal findings of blood chemistry, G47.00 - Insomnia, unspecified, R25.2 - Cramp and spasm, R25.3 - Fasciculation UA CC w/rflx Micro + Cult 3 Months E78.00 - Pure hypercholesterolemia, unspecified, E55.9 - Vitamin D deficiency, unspecified, R79.89 - Other specified abnormal findings of blood chemistry, G47.00 - Insomnia, unspecified, R25.2 - Cramp and spasm, R25.3 - Fasciculation Lipid Panel 3 Months E78.00 - Pure hypercholesterolemia, unspecified, E55.9 - Vitamin D deficiency, unspecified, R79.89 - Other specified abnormal findings of blood chemistry, G47.00 - Insomnia, unspecified, R25.2 - Cramp and spasm, R25.3 - Fasciculation Complete Blood Count Auto Diff 3 Months E78.00 - Pure hypercholesterolemia, unspecified, E55.9 - Vitamin D deficiency, unspecified, R79.89 - Other specified abnormal findings of blood chemistry, G47.00 - Insomnia, unspecified, R25.2 - Cramp and spasm, R25.3 - Fasciculation Hemoglobin A1c 3 Months E78.00 - Pure hypercholesterolemia, unspecified, E55.9 - Vitamin D deficiency, unspecified, R79.89 - Other specified abnormal findings of blood chemistry, G47.00 - Insomnia, unspecified, R25.2 - Cramp and spasm, R25.3 - Fasciculation Vitamin B12 and Folate 3 Months E78.00 - Pure hypercholesterolemia, unspecified, E55.9 - Vitamin D deficiency, unspecified, R79.89 - Other specified abnormal findings of blood chemistry, G47.00 - Insomnia, unspecified, R25.2 - Cramp and spasm, R25.3 - Fasciculation Comprehensive [place]. Panel Fast 3 Months E78.00 - Pure hypercholesterolemia, unspecified, E55.9 - Vitamin D deficiency, unspecified, R79.89 - Other specified abnormal findings of blood chemistry, G47.00 - Insomnia, unspecified, R25.2 - Cramp and spasm, R25.3 - Fasciculation
--- OUTSIDE RECORDS SUMMARY | 2025-01-29 15:39 | XMS_ITS | Encounter Summary ---
Author Organization [employer] Address [address] [place] [address] Care Team Providers Care Electronics Maintenance Technician Name Role Phone Unavailable Primary Care Provider Unavailabl e Reason for Visit * Reason Onset Date Comments insurance 03/31/2024 Encounter Details Date Type Department Care Team (Late st Contact Info) Description 03/31/[address] [facility] ADULT DENTAL [address] [place], [place] [phone] Kalyan Juarez, DMD [address] [place], [place] [phone] insurance Social History Tobacco Use Types Packs/Day [...] Description 02/26/2025 3:00 PM EDT Office Visit [facility] ADULT DENTAL [address] [place] [address] Kalyan Juarez, DMD [address] [place] [address] documented as of this encounter Visit Diagnoses Not on filedocumented in this encounter
== END 2025-01-29 16:04 | disposition home or self-care (01) ==
LOC: HO.HMCH 14:57
PROVIDERS: PCP Internal Medicine
DX: R25.3 Fasciculation (principal); R25.2 Cramp and spasm; R79.89 Other specified abnormal findings of blood chemistry; E78.00 Pure hypercholesterolemia, unspecified; E55.9 Vitamin D deficiency, unspecified

== ENCOUNTER → 2025-01-29 14:56 | Outpatient (BNVA) | payer BC, SELFPAY | PROVIDERS: PCP Internal Medicine | DX: G25.81 Restless legs syndrome (principal); E78.00 Pure hypercholesterolemia, unspecified; R79.89 Other specified abnormal findings of blood chemistry; E55.9 Vitamin D deficiency, unspecified | CPT/HCPCS: 96127 ==

== ENCOUNTER 2025-04-07 15:52 | Outpatient (AMB) | payer BC, SELFPAY ==
[2025-04-07 15:59] VITALS: BP 114/70; PULSE 85; TEMP 36.4; O2SAT 97; BMI 25.2
--- NOTE | 2025-04-07 15:59 | MHC.PC.OV ---
Vital Signs 04/07/25 15:59 Height 5 ft 6 in Weight 156 lb 6 oz BMI 25.2 BP 114/70 Blood Pressure Location Lt brachial Position Sitting Pulse 85 Pulse Source Pulse Oximeter Temp 97.5 F Temp Source Temporal Artery Scan Pulse Oximetry (%) 97 Oxygen Delivery Method Room Air Intake Visit Reasons: back pain Interlocker Maintainer Required: No Accompanied by: Self / Same As Patient Allergies No Known Allergies Allergy (Mild, Verified 04/07/25 16:12) NONE Medication List - Last Reconciled 04/07/25 by VIN Willis atorvastatin 10 mg PO DAILY 90 days cyclobenzaprine 5 mg PO TID PRN 30 days ibuprofen 600 mg PO Q8H PRN Tobacco use date assessed: 04/07/25 Dental Screening Dental Screen Date: 04/07/25 Did you have a dental visit in the last 12 months?: Yes Did you have a dental problem in the last 6 months where you did not have access to dental care?: No HPI back pain HPI Details The patient is a 44-year-old male presenting with back pain. The issue began early in the spring when the patient experienced a sensation of sinking into his own back while reaching for something. Initially, there was no immediate pain, but mild soreness was noted the following day. Recently, the back pain has become bothersome, particularly when sitting or moving in certain ways, though it is not constant. The pain is described as minor, with an intensity of 2 to 3 on a scale of 10. However, the patient would like to know that he is dealing with and is asking for imaging of his back. 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 He has a history of muscle strains in the back but notes that this current pain does not feel muscular in nature. The patient also reports leg twitching, which he associates with previous overuse of certain muscles while cycling. He was previously prescribed gabapentin but has since discontinued its use as the leg symptoms have improved. [facility] Medical History Pure hypercholesterolemia Allergic rhinitis Vitamin D deficiency Knee pain, bilateral Surgical History History of strabismus surgery Family History Mother No problems noted. Father No problems noted. 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 1. Little interest or pleasure in doing things: not at all 2. Feeling down, depressed, or hopeless: not at all 3. Trouble falling or staying asleep, or sleeping too much: not at all 4. Feeling tired or having little energy: not at all 5. Poor appetite or overeating: not at all 6. Feeling bad about yourself - or that you are a failure or have let yourself or your family down: not at all 7. Trouble concentrating on things, such as reading the newspaper or watching television: not at all 8. Moving or speaking so slowly that other people could have noticed. Or the opposite - being so fidgety or restless that you have been moving around a lot more than usual: not at all 9. Thoughts that you would be better off or of hurting yourself in some way: not at all Total score: 0 Source: Developed by Drs. Bill Pardo, Rachel Prasad, Edvin Baugh and colleagues, with an educational portia from [employer]. Thrive Questionnaire Date Thrive assessed: 04/07/25 I am a: Patient What is your living situation today?: I have a steady place to live Within the past 12 months, did the food you bought not last and you didn't have the money to get more?: I choose not to answer this question Within the past 12 months, did you worry whether your food would run out before you got money to buy more?: Never true Do you have trouble paying for medicines?: No Do you have trouble getting transportation to medical appointments?: No Do you have trouble paying your heating and electricity bill?: No Do you have trouble taking care of your child, family member or friend?: No Do you have trouble with day-to-day activities such as bathing, preparing meals, shopping, managing finances, etc.?: No Are you currently unemployed and looking for a job?: No Are you interested in more education?: No Please select the resources that you would like help with: None THRIVE Score: 0 AUDIT C Alcohol Use Questionnaire (AUDIT-C) 1. How often do you have a drink containing alcohol?: Monthly or less 2. How many drinks containing alcohol do you have on a typical day when you are drinking?: 1 or 2 3. How often do you have six or more drinks on one occasion?: Less than monthly Total Score: 2 ALIA-7 AMB Questionnaire ALIA-7 Date ALIA - 7 assessed: 04/07/25 Feeling nervous, anxious, or on edge: 0 = Not at all Not being able to stop or control worryin = Not at all Worrying too much about different things: 0 = Not at all Trouble relaxin = Not at all Being so restless that it is hard to sit still: 0 = Not at all Becoming easily annoyed or irritable: 0 = Not at all Feeling afraid as if something awful might happen: 0 = Not at all Total ALIA-7 score (0-4 normal; 5-9 mild; 10-14 moderate; 15-21 severe): 0 Source: Developed by Drs. Bill Pardo, Rachel Prasad, Edvin Baugh and colleagues, with an educational portia from [employer]. Review of Systems Const Denies body aches, Denies chills, Denies fever(s), Denies headache(s) and Denies poor appetite Eyes Reports no additional complaints ENT Denies dysphagia, Denies dizziness, Denies headache(s) and Denies odynophagia Card Denies chest pain, Denies syncope, Denies edema, Denies irregular heart rhythm, Denies lightheadedness and Denies dyspnea Resp Denies cough and Denies dyspnea GI Denies abdominal pain, Denies constipation, Denies dysphagia, Denies diarrhea, Denies nausea, Denies odynophagia and Denies vomiting Reports no additional complaints Musc Reports back pain (Low back) Skin/Breast Reports system reviewed and no additional complaints, except as documented Neuro Denies dizziness, Denies syncope and Denies headache(s) Psych Reports no additional complaints Physical exam (Primary Care) Vital Signs: Last Vital Signs Temp 97.5 F 04/07/25 15:59 Pulse 85 04/07/25 15:59 BP 114/70 04/07/25 15:59 Pulse Ox 97 04/07/25 15:59 Oxygen Delivery Method Room Air 04/07/25 15:59 BMI result Body Mass Index 25.2 Tobacco/Smoking Status: Tobacco use Status Tobacco use date assessed 04/07/25 04/07/25 16:00 Patient Tobacco Use Status Current everyday Tobacco 04/07/25 16:00 Tobacco use type Cigar 04/07/25 16:00 e-Cigarette/Vaping Use Never Used 04/07/25 16:00 PHQ-9: PHQ-9 Score PHQ-9: Total score 0 04/07/25 16:19 Thrive Assessment: Date of Thrive Assessment Date Thrive assessed 04/07/25 04/07/25 16:00 Const General: cooperative, healthy appearing, comfortable and no acute distress Orientation/consciousness: patient oriented x3 HENMT Head: Yes normocephalic Ears: hearing grossly normal bilaterally General nose exam: Normal external nose present Eyes General: appearance normal, both eyes and all related structures Conjunctivae: conjunctivae normal Neck Neck: Yes full ROM and Yes no lymphadenopathy Resp Effort & Inspection: normal respiratory effort Auscultation: clear to auscultation bilaterally, no crackles, no rales, no rhonchi and no wheezes Cardio Rate: regular rate Rhythm: regular rhythm General: Yes no CVA tenderness Back/Spine/Pelvis Back: no CVA tenderness Thoracic/Lumbar Spine: straight leg raise negative bilaterally and No lumbar spinal tenderness Skin General skin exam: no rashes or lesions noted Neuro General: patient oriented x3 Gait exam (Neuro): Normal gait present Extrem General: Yes normal to inspection, Yes full ROM and No edema Psych Affect: normal affect Attitude: cooperative Insight: Good insight present (Psych) Judgement: Good judgement present (Psych) Coding Level of Care Code Est Pt Level 3 (89702) Diagnoses Bilateral low back pain without sciatica, unspecified chronicity M54.50 Chronicity: unspecified Back pain laterality: bilateral Sciatica presence: without sciatica Time Spent (min) 32 Assessment & Plan Assessment & Plan (1) Low back pain: Code(s): M54.50 - Low back pain, unspecified Category: Medical Qualifiers: Chronicity: unspecified Back pain laterality: bilateral Sciatica presence: without sciatica Qualified Code(s): M54.50 - Low back pain, unspecified Plan: An x-ray of the back is recommended to evaluate the underlying cause of the pain and to rule out any structural abnormalities. The patient is advised to monitor the pain and report any changes or worsening of symptoms. Orders: Orders XR lumbar spine 2-3V Today M54.50 - Low back pain, unspecified
== END 2025-04-07 16:58 | disposition home or self-care (01) ==
LOC: HO.HMCH 15:53
PROVIDERS: PCP Internal Medicine
DX: M54.50 Low back pain, unspecified (principal)

== ENCOUNTER 2025-04-07 15:52 | Outpatient (REF) | payer BC, SELFPAY ==
--- OUTSIDE RECORDS SUMMARY | 2025-04-06 14:30 | XMS_ITS | Encounter Summary ---
Author Organization [employer] Address [address] [place] [address] Care Team Providers Care Due Diligence Coordinator Name Role Phone Unavailable Primary Care Provider Unavailabl e Reason for Visit * Reason Comments Dental Exam # 8,9 Encounter Details Date Type Department Care Team (Late st Contact Info) Description 04/06/2025 2:30 PM EDT Office Visit [facility] ADULT D[facility] [address] [place], [place] [phone] Kalyan Juarez DMD [address] [place], [place] [phone] Social History Tobacco Use Types Packs/Day Years Used Date Smoking Tobacco: Every Day Cigars Smokeless Tobacco: Never Alcohol Use Standard [...] AM EDT documented as of this encounter Progress Notes * Kalyan Juarez DMD - 04/06/2025 2:30 PM EDT C/C: feels upper front teeth loose and smell I.O.E: no sensitive to percussion of #8,9, erythematous and edematous gingiva, gingival plaque accumulation at #8, bleeding upon probing #8, carious tooth#9, gen plaque and calculus accumulation, attrition lower anterior teeth, cervical carious tooth#19 E.O.E: NSF OCS: NSF Head and neck: NSF Radiographic: gen moderate periodontal bone loss, carious teeth, full bony impacted #1,16,17,32 Diagnosis: gen chronic moderate periodontitis, full bony impacted #1,16,17,32, carious teeth Treatment: prophy, recall exam, fillings, monitor #1,16,17,32, 8,9 Med: Peridex x 1 bottle Say documented in this encounter Plan of Treatment Upcoming Encounters Date Type Department Care Team (Late st Contact Info) Description 04/24/2025 2:15 PM EDT Office Visit [facility] ADULT D[facility] [address] [place] [address] Shannon Stein [address] [place], [place] [phone] 05/04/2025 3:00 PM EDT Office Visit [facility] ADULT D[facility] [address] [place] [address] Kalyan Juarez DMD [address] [place] [address] Scheduled Orders Name Type Priority Associated Diagnoses Orde r Schedule PROPHYLAXIS - ADULT Dental Routine 1 Occ urrences starting 04/06/2025 COMPREHENSIVE PERIODONTAL EVALUATION - NEW OR ESTABLISHED PATIENT Dental Routine 1 Occurrence s starting 04/06/2025 9 MIFL 9 MIFL RESIN-BASED COMPOSITE - 4 OR MORE SURFACES (ANTERIOR) Dental Routine 1 Occurrence s starting 04/06/2025 19 B(V) 19 B(V) RESIN-BASED COMPOSITE - 1 SURF, POSTERIOR Dental Routine [address] arting 04/06/2025 documented as of this encounter Procedures Procedure Name Priority Date/Time Associated Diagnosis Comments INTRAORAL - COMPLETE SERIES OF RADIOGRAPHIC IMAGES Routine 04/06/2025 2:30 PM EDT COMPREHENSIVE ORAL EVALUATION - NEW OR ESTABLISHED PATIENT Routine 04/06/2025 2:30 PM EDT CASE PRESENTATION, DETAILED AND EXTENSIVE TREATMENT PLANNING Routine 04/06/2025 2:30 PM EDT documented in this encounter Visit Diagnoses Not on filedocumented in this encounter
--- NOTE | ~2025-04-07 | XR_ITS ---
EXAMINATION: XR LUMBOSACRAL SPINE CLINICAL INFORMATION: M54.50 - Low back pain, unspecified COMPARISON: Chest x-ray 07/03/2019 TECHNIQUE: Three views of the lumbosacral spine. FINDINGS: Focal atherosclerotic calcification is visible in the lower abdominal aorta. There are 5 nonrib-bearing lumbar segments. There is minimal convex left curvature of the lumbar spine SI and hip joints are unremarkable. High density projects over the anterior superior T12 vertebral body on the lateral view. It is not visible on the frontal view and is probably extra osseous in nature. On the lateral chest x-ray in 2019, there was a similar density projecting over the region of T12-L1 also indicating that this is likely extraosseous in nature. There is mild disc space spurring throughout the lumbar spine and small anterior osteophytes. Vertebral body height is maintained. XR/XR lumbar spine 2-3V IMPRESSION: Mild degenerative disc disease is present throughout the lumbar spine. Focal density projecting over upper T12 vertebral body is visible only on the lateral view. As described above, this is likely extraosseous in nature. Electronically signed by: Hector King MD 04/07/2025 05:20 PM EDT
--- OUTSIDE RECORDS SUMMARY | 2025-04-07 18:42 | XMS_ITS | Clinical Summary ---
Author Organization [employer] Address [address] [place] [address] [address] [place] [address] Care Team Providers Care Chassis Driver Name Role Phone Unavailable Primary Care Provider Unavailabl e Allergies No known active allergies Medications atorvastatin (Lipitor) 20 MG tablet Take 1 tablet by mouth at bed time. 11/25/2021 Active cholecalciferol (Vitamin D-3) 50 MCG (1999) capsule Take 1 capsule by mouth in the morning. 11/09/2021 Active cyclobenzaprine (Flexeril) 5 MG tablet Take 5 mg by mouth if needed. 04/11/2022 Active Multiple Vitamins-Minera ls (B complex-vitamin C-vitamin E-zinc) tablet Take 1 tablet by mouth Once per day. Active chlorhexidine (Peridex) 0.12 % solution Use 15 mL in the mouth or throat if needed in the morning, at noon, and at bedtime (PROPHYLAXIS ) for up to 5 days. 110 mL 04/06/2025 Active Active Problems Problem Noted Date Diagnosed Date Known health problems: none 09/26/2024 Encounters Date Type Department Care Team Description 04/06/2025 2:30 PM EDT Office Visit [facility] [address] [place] [address] Kalyan Juarez DMD 03/30/2025 Travel 02/26/2025 3:00 PM EDT Office Visit [facility] [address] [place] [address] Kalyan Juarez DMD from Last 3 Months Social History Tobacco Use Types Packs/Day Years Used Date Smoking Tobacco: Every Day Cigars Smokeless Tobacco: Never Tobacco Cessation:Ready to Q uit: Not Asked; Counseling Given: Not Answered Alcohol Use Standard Drinks/Week Comments Not Currently 0 (1 standard drink = 0.6 oz pur e alcohol) Sex and Gender Information Value Date Recorded Sex Assigned at Male 05/15/2022 10:25 AM EDT Legal Sex Male 10:25 AM EDT Gender Identity Male 08/14/2022 2:09 PM EST Sexual Orientation Choose not to disclose 2021 10:25 AM EDT Last Filed Vital Signs Vital Sign Reading Time Taken Comments Blood Pressure 124/80 12/03/2024 1:36 PM EDT Pulse 70 10/17/2024 2:24 PM EDT Temperature - - Respiratory Rate - - Oxygen Saturation - - Inhaled Oxygen Concentration - - Weight - - Height - - Body Mass Index - - Plan of Treatment Upcoming Encounters Date Type Department Care Team (Late st Contact Info) Description 04/24/2025 2:15 PM EDT Office Visit [facility] [address] [place] [address] Shannon Stein [address] [place] [address] 05/04/2025 3:00 PM EDT Office Visit [facility] [address] [place] [address] Kalyan Juarez, DMD [address] [place] [address] Health Maintenance Due Date Last Done Comments CT Colonography 1979 Colonoscopy 1979 Colorectal Cancer Screening 1979 Dental Prophylaxis 1979 Depression Screening 1979 FIT DNA/Cologuard 1979 FIT 1979 FOBT 1979 HIV Screening 1979 Lipid Panel 1979 SDOH Screening 1979 Sigmoidoscopy 1979 Disability Screening 1979 Alcohol/Substance Use Screening 1991 Family Planning (PISQ) 1994 HPV Vaccines (1 - Male 3-dos e series) 1994 Hepatitis C Screening 1997 Hepatitis B Vaccines (1 of 3 - 19+ 3-dose series) 1998 Pneumococcal Vaccine: Pediat rics (0 to 5 Years) and At-Risk Patients (6 to 49) Years (1 of 2 - PCV) 1998 DTaP/Tdap/Td Vaccines (2 - T d or Tdap) 12/14/2017 12/15/2007 COVID-19 Vaccine (1 - 2023-2 5 season) 2025 Influenza Vaccine (#1) 2025 Dental Oral Exam 10/05/2025 04/06/2025 Tobacco Screening 04/06/2026 04/06/2025 Dental X-Ray: Bitewings 04/07/2026 04/06/2025 Dental X-Ray: Full Mouth 04/07/2028 04/06/2025 Zoster Vaccines (1 of 2) 2029 RSV Patients and Pa tients Aged 60 years or older (1 - 1-dose 75+ series) 2054 HIB Vaccines Aged Out No longer eligi ble based on patient's age to complete this topic Hepatitis A Vaccines Aged Out No long er eligible based on patient's age to complete this topic IPV Vaccines Aged Out No longer eligi ble based on patient's age to complete this topic Meningococcal B Vaccine Aged Out No l onger eligible based on patient's age to complete this topic Meningococcal Vaccine Aged Out No jessika fernandez eligible based on patient's age to complete this topic RSV under 20 months Aged Out No longe r eligible based on patient's age to complete this topic Rotavirus Vaccines Aged Out No longer eligible based on patient's age to complete this topic Procedures Procedure Name Priority Date/Time Associated Diagnosis Comments COMPREHENSIVE ORAL EVALUATION - NEW OR ESTABLISHED PATIENT Routine 04/06/2025 2:30 PM EDT CASE PRESENTATION, DETAILED AND EXTENSIVE TREATMENT PLANNING Routine 04/06/2025 2:30 PM EDT INTRAORAL - COMPLETE SERIES OF RADIOGRAPHIC IMAGES Routine 04/06/2025 2:30 PM EDT CASE PRESENTATION, DETAILED AND EXTENSIVE TREATMENT PLANNING Routine 02/26/2025 3:00 PM EDT LIMITED ORAL EVALUATION - PROBLEM FOCUSED Routine 02/26/2025 3:00 PM EDT from Last 3 Months Insurance DENTAL - [facility] PARTIAL (MEDICAID) [address] [place] [address]
--- OUTSIDE RECORDS SUMMARY | 2025-04-07 18:42 | XMS_ITS | Encounter Summary ---
Author Organization [employer] Address [address] [facility] 7[address] [place] [address] Care Team Providers Care Oil Bay Technician Name Role Phone Unavailable Primary Care Provider Unavailabl e Encounter Details Date Type Department Care Team (Late st Contact Info) Description 09/15/2022 Abstract [facility] [address] [place] [address] Kalyan Juarez DMD [address] [place] [address] Social History Tobacco Use Types Packs/Day Years [...] not to disclose 2021 10:25 AM EDT COVID-19 Exposure Response Date Recorded In the last 10 days, have yo u been in contact with someone who was confirmed or suspected to have Coronavirus/COVID-19? No / Unsure 09/08/2022 2:25 PM EST documented as of this encounter Plan of Treatment Upcoming Encounters Date Type Department Care Team (Late st Contact Info) Description 04/24/2025 2:15 PM EDT Office Visit [facility] [address] [place] [address] [address] Stein [address] [place] [phone] 05/04/2025 3:00 PM EDT Office Visit [facility] [address] [place] [address] Kalyan Juarez DMD [address] [place] [address] documented as of this encounter Visit Diagnoses Not on filedocumented in this encounter
--- OUTSIDE RECORDS SUMMARY | 2025-04-07 18:42 | XMS_ITS | Encounter Summary ---
Author Organization [employer] [facility] Address [address] [facility] 7 [place] [address] Care Team Providers Care Scrubbing Machine Operator Name Role Phone Unavailable Primary Care Provider Unavailabl e Encounter Details Date Type Department Care Team (Latest Contact Info) Description 11/25/2021 Abstract [facility] CONVERSIONS Dental, Provider, DDS Social History Tobacco Use Types Packs/Day Years Used Date Smoking Tobacco: Never Assessed Sex and Gender Information Value Date Recorded Sex Assigned at Male 05/15/2022 10:25 AM EDT Legal Sex Male 10:25 AM EDT Gender Identity Male 08/14/2022 2:09 PM EST Sexual Orientation Choose not to disclose 2021 10:25 AM EDT documented as of this encounter Plan of Treatment Upcoming Encounters Date Type Department Care Team (Late st Contact Info) Description 04/24/2025 2:15 PM EDT Office Visit [facility]ULT [facility] [address] [place] [address] Shannon Stein [address] [place] [address] 05/04/2025 3:00 PM EDT Office Visit [facility] [address] [place] [address] Kalyan Juarez, DMD [address] [place] [address] documented as of this encounter Visit Diagnoses Not on filedocumented in this encounter
--- OUTSIDE RECORDS SUMMARY | 2025-04-07 18:42 | XMS_ITS | Encounter Summary ---
Author Organization [employer] Address [address] [facility] [address] [place] [address] Care Team Providers Care Baggage Inspector Name Role Phone Unavailable Primary Care Provider Unavailabl e Reason for Visit * Reason Onset Date Comments insurance 03/31/2024 Encounter Details Date Type Department Care Team (Late st Contact Info) Description 03/31/2024 Telephone C ADULT DENTAL [address] [place], [place] [phone] Kalyan Juarez, DMD [address] [place], [place] [phone] insurance Social History Tobacco Use Types Packs/Day [...] Description 04/24/2025 2:15 PM EDT Office Visit [facility] [address] [place] [address] [address] Stein [address] [place] [address] [phone] 05/04/2025 3:00 PM EDT Office Visit [facility]ULT [facility] [address] [place], [place] [phone] Kalyan Juarez, NIRALI [address] [place], [place] [phone] documented as of this encounter Visit Diagnoses Not on filedocumented in this encounter
== END 2025-04-07 15:53 | disposition home or self-care (01) ==
LOC: HO.XRAY 15:52
PROVIDERS: PCP Internal Medicine
DX: M54.50 Low back pain, unspecified (principal)
CPT/HCPCS: 72100

== ENCOUNTER → 2025-04-07 16:30 | Outpatient (BNV) | payer BC, SELFPAY | PROVIDERS: PCP Internal Medicine; Visit Provider Radiology Diagnostic Radiology | DX: M54.50 Low back pain, unspecified (principal) | CPT/HCPCS: 72100 ==